=== PATIENT | male | born 1980 | race Caucasian/White ===

== ENCOUNTER 2019-10-01 06:23 | Day surgery (SDC) | payer BC ==
[~2019-10-01 06:23] MED LIST: Lactated Ringers 1,000 ML IV SCH
--- NOTE | 2019-10-01 07:16 | PCM.PREANE ---
Preanesthetic Assessment - Anesthesia/Transfusion/Family Hx Anesthesia History: Prior Anesthesia Without Reaction Family History of Anesthesia Reaction: No Transfusion History: No Prior Transfusion(s) Intubation History: Unknown - Review of Systems General: No Symptoms Pulmonary: No Symptoms Cardiovascular: No Symptoms Gastrointestinal: No Symptoms Neurological: No Symptoms Other: Reports: None - Physical Assessment Height: 6 ft 1 in Weight: 90.718 kg ASA Class: 1 Mental Status: Alert & Oriented x3 Airway Class: Mallampati = 1 Dentition: Reports: Normal Dentition Thyro-Mental Finger Breadths: 3 Mouth Opening Finger Breadths: 3 ROM/Head Extension: Full Lungs: Clear to Auscultation, Normal Respiratory Effort Cardiovascular: Regular Rate, Regular Rhythm - Allergies Allergies/Adverse Reactions: Allergies Allergy/AdvReac Type Severity Reaction Status Date / Time No Known Allergies Allergy Verified 09/25/19 11:16 - Blood Blood Available: No - Anesthesia Plan Pre-Op Medication Ordered: None - Acknowledgements Anesthesia Type Planned: General Anesthesia Pt an Appropriate Candidate for the Planned Anesthesia: Yes Alternatives and Risks of Anesthesia Discussed w Pt/Guardian: Yes Pt/Guardian Understands and Agrees with Anesthesia Plan: Yes PreAnesthesia Questionnaire HEENT History: Reports: Other (See Below) Other HEENT History: wears glasses/contacts Cardiovascular History: Reports: None Respiratory History: Reports: Other (See Below) Other Respiratory History: asthma as a child Gastrointestinal History: Reports: None Genitourinary History: Reports: None Musculoskeletal History: Reports: Fracture, Other (See Below) (rt. biceps tendon tear at present) Other Musculoskeletal History: hx fx ribs Neurological History: Reports: None Psychiatric History: Reports: None Endocrine/Metabolic History: Reports: None Hematologic History: Reports: None Immunologic History: Reports: None Oncologic (Cancer) History: Reports: None Dermatologic History: Reports: None - Past Surgical History Head Surgeries/Procedures: Reports: None HEENT Surgical History: Reports: Adenoidectomy, Tonsillectomy Cardiovascular Surgical History: Reports: None Respiratory Surgical History: Reports: None GI Surgical History: Reports: None Male Surgical History: Reports: None Endocrine Surgical History: Reports: None Neurological Surgical History: Reports: None Musculoskeletal Surgical History: Reports: None Oncologic Surgical History: Reports: None Dermatological Surgical History: Reports: None - SUBSTANCE USE Smoking Status *Q: Never Smoker Recreational Drug Use History: No - HOME MEDS Home Medications: Home Meds Multivitamin [Multivitamins] 1 tab PO DAILY 09/25/19 [History] - CURRENT (IN HOUSE) MEDS Current Meds: Current Medications Cefazolin Sodium/Dextrose 2 gm (/ Premix) 50 mls @ 100 mls/hr IV ONCALL JULIA Lactated Ringer's (Ringers, Lactated) 1,000 mls @ 100 mls/hr IV ASDIRECTED JULIA
[2019-10-01] MEDS ORDERED: Bupivacaine 0.5%/EPINEPHrine 1:200,000 10 ML SDV ONE (07:20)
[2019-10-01] MEDS ORDERED: Propofol 200 MG/20 ML SDV ONE (07:30)
[2019-10-01] MEDS ORDERED: fentaNYL 250 MCG/5 ML SDV ONE (07:30)
[2019-10-01] MEDS ORDERED: Midazolam 1 MG/ML 2 ML SDV ONE ×2 (07:30→08:56)
[2019-10-01] MEDS ORDERED: Succinylcholine/Sod PF 100 MG/5 ML SYRINGE IV ONE (07:31)
[2019-10-01] MEDS ORDERED: Rocuronium 100 MG/10 ML Syringe ONE (07:31)
[2019-10-01] MEDS ORDERED: Lidocaine 2% 5 ML SDV ONE (07:31)
[2019-10-01] MEDS ORDERED: ceFAZolin 2 GM in Premix Bag 1 BAG IV SCH (08:00)
[2019-10-01] MEDS ORDERED: Sugammadex Sodium 200 MG/2 ML VIAL ONE (08:01)
[2019-10-01] MEDS ORDERED: Ondansetron 4 MG/2 ML SDV ONE (08:02)
[2019-10-01] MEDS ORDERED: Dexamethasone 4 MG/ML 5 ML MDV ONE ×2 (08:02→08:35)
[2019-10-01] MEDS ORDERED: ceFAZolin/Dextrose,Iso-Osmotic 2 GM/50 ML Duplex Bag IV ONE (08:03)
--- NOTE | 2019-10-01 09:31 | PCM.OPNOTE ---
- General Post-Op/Procedure Note Date of Surgery/Procedure: 10/01/19 Operative Procedure(s): right ctr, right distal biceps repair Pre Op Diagnosis: right cts, right distal biceps rupture Post-Op Diagnosis: Same Anesthesia Technique: General ET Tube, Regional Block Primary Surgeon: Dandre Weldon Manager Of Information: Yuliana Garcia EBL in mLs: 25 Complications: None Condition: Good
[2019-10-01] MEDS ORDERED: Ketorolac 30 MG/ML SDV ONE (09:59)
[2019-10-01] MEDS ORDERED: Albuterol 0.083% 2.5 MG/3 ML Neb Soln NEB PRN (10:00)
[2019-10-01] MEDS ORDERED: fentaNYL 100 MCG/2 ML SDV IVPUSH PRN (10:00)
[2019-10-01] MEDS ORDERED: Atropine 0.1 MG/ML 10 ML Syringe IVPUSH PRN ×2 (10:00)
[2019-10-01] MEDS ORDERED: Naloxone 0.4 MG/ML Syringe IVPUSH PRN (10:00)
[2019-10-01] MEDS ORDERED: Ketorolac 30 MG/ML SDV IVPUSH PRN (10:00)
[2019-10-01] MEDS ORDERED: 50% Dextrose in Water 50 ML Syringe IVPUSH PRN (10:00)
[2019-10-01] MEDS ORDERED: EPINEPHrine 1:10,000 1 MG/10 ML Syringe IVPUSH PRN (10:00)
--- NOTE | 2019-10-01 11:11 | PCM.POSTAN ---
POST ANESTHESIA ASSESSMENT - MENTAL STATUS Mental Status: Alert, Oriented - VITAL SIGNS Vital Signs: Last Vital Signs Temp 36 C L 10/01/19 09:37 Pulse 73 10/01/19 10:12 Resp 9 L 10/01/19 10:12 BP 118/77 10/01/19 10:12 Pulse Ox 92 L 10/01/19 10:12 - RESPIRATORY Respiratory Status: Respiratory Rate WNL, Airway Patent, O2 Saturation Stable - CARDIOVASCULAR CV Status: Pulse Rate WNL, Blood Pressure Stable - GASTROINTESTINAL GI Status: No Symptoms - PAIN Pain Score: 5 - POST OP HYDRATION Hydration Status: Adequate & Stable - OBSERVATIONS Free Text/Narrative:: No anesthesia problems
--- NOTE | 2019-10-01 11:41 | PCM.SN.2 ---
- Free Text/Narrative Note: Patient requested preop to not take any narcotic pain meds post operatively. Dr Weldon and patient discuss block with Dr Quarles in preop. Consent obtained. After surgery, the patient is transported to the PACU and placed on monitors. Report to Mariama. US used to find landmarks. Site cleansed with chloraprep. Skin anesthetized with Lidocaine. 20 g stimulating needle advanced under US guidance. R deltoid twitch at 1 mA. 20 ml 0.5% Ropivacaine given under US visualization with aspiration every 5 ml.
--- NOTE | 2019-10-01 12:04 | PCM48HPAN ---
Post Anesthesia Note - EVALUATION WITHIN 48HRS OF ANESTHETIC Vital Signs in Normal Range: Yes Patient Participated in Evaluation: Yes Respiratory Function Stable: Yes Airway Patent: Yes Cardiovascular Function Stable: Yes Hydration Status Stable: Yes Pain Control Satisfactory: Yes Nausea and Vomiting Control Satisfactory: Yes Mental Status Recovered: Yes Vital Signs: Last Vital Signs Temp 36 C L 10/01/19 09:37 Pulse 73 10/01/19 10:12 Resp 9 L 10/01/19 10:12 BP 118/77 10/01/19 10:12 Pulse Ox 92 L 10/01/19 10:12
--- NOTE | 2019-10-01 16:23 | OR ---
SURGEON: Dandre Weldon DATE OF PROCEDURE: 10/01/2019 PREOPERATIVE DIAGNOSES: Right carpal tunnel syndrome and right distal biceps tendon rupture. POSTOPERATIVE DIAGNOSES: Right carpal tunnel syndrome and right distal biceps tendon rupture. PROCEDURES: Right carpal tunnel release and right distal biceps tendon repair using Iconix 2.3 mm anchor. PRIMARY SURGEON: Dandre Weldon DO LOCKS TENDER: ZULEYKA Rick ROLE OF LOCKS TENDER: Nurse practitioner, ZULEYKA Rick, played an essential role in assisting in this case, helping to position the patient, retract structures as needed, as well as suturing and cutting sutures as indicated. Her presence improved patient's safety and decreased operative time. ANESTHESIA: General endotracheal intubation. FLUID: Lactated Ringer's solution. ESTIMATED BLOOD LOSS: 25 mL. COMPLICATIONS: None. SPECIMEN: None. DISCHARGE DISPOSITION: Stable to PACU. HISTORY AND INDICATIONS FOR THE PROCEDURE: The patient was seen preoperatively in the clinic. MRI confirmed that he had a distal biceps tendon rupture with most of the tendon intact as well as bilateral mild carpal tunnel syndrome. He had planned on doing the carpal tunnel release a year and a half ago, but never got around to it. He had been through over 90 days of nonoperative therapy for his distal biceps tendon rupture. Risks and goals of the procedure were explained to the patient. Informed consent was obtained. DETAILS OF PROCEDURE: The patient was seen preoperatively by myself and the Anesthesia staff in the preoperative holding area where the operative site was marked. He was brought to the operative suite by the Anesthesia staff where general anesthesia was administered. All extremities were found to be well padded. A well-padded tourniquet was placed around the proximal right arm. The right upper extremity was then prepped and draped in a sterile manner. Time-out was called identifying the correct patient, the correct procedure, the correct site, and that antibiotics had been given within appropriate period of time. The right upper extremity was exsanguinated and tourniquet was raised to 200 mmHg. We started with the carpal tunnel release first. This was a longitudinal incision proximal to the line in line with the 1st metacarpal as well as the radial border of the 4th metacarpal and extended proximally about 2.5 cm. The subcutaneous fat was removed out of the way with a blade. A self-retaining retractor was used. The transverse carpal ligament was easily identified and incised with a 15 blade. Metzenbaums were used to go under and above the deep palmar fascia proximally and distally to the incision and then released under direct visualization with the aid of a Ragnell. After that had been accomplished, we then irrigated, applied some dexamethasone, and then closed with 3-0 nylon in a horizontal mattress interrupted manner. We then let down the tourniquet at 13 minutes and then proceeded with the biceps tendon repair. A longitudinal incision was made distal to the antecubital fossa where the biceps that was intact was still palpated. The patient was quite muscular, so this did take a little bit of time. The lateral antebrachial cutaneous nerve was not identified during the procedure. The exposure was then followed down to the radial tuberosity. I did ligate some small recurrent radial vessels with 2- 0 silk. When I got near the tuberosity of the biceps tendon insertion, a large amount of fluid was visible consistent with a tendon rupture. I then placed an anchor and then whipstitched with a Krackow method up the tendon and then tied it. I then went to pull my sutures through the anchor and the anchor let loose. I had to place two more anchors until one held and then tied the free ends to the free ends of the previous suture with a Krackow stitch. This provided good fixation. We then irrigated with saline and removed any extra suture material. I did note a small bleeder where a needle gone through what I believe was a branch of the brachial artery. I used a 4-0 silk on a small needle and then closed this with a [id number] suture. This took care of any bleeding. I took care of some small bleeders with Bovie electrocautery. We irrigated copiously with saline and then closed the incision subcutaneously with 2-0 Vicryl and then 3-0 nylon. We then placed Betadine-soaked Adaptic over our incisions plus fluff followed by Webril and an Gurdeep wrap. The patient was then placed into a hinged elbow brace, which was open from 70 to 90 degrees flexion. The patient was then allowed to awaken from general anesthesia and taken to the PACU in stable condition for a regional block. [id number] / MODL /[id number]
== END 2019-10-01 12:35 | disposition home or self-care (01) ==
LOC: MW.SDS 06:23
PROVIDERS: ATTEND Orthopaedic Surgery
DX: S46.211A Strain of muscle, fascia and tendon of other parts of biceps, right arm, initial encounter (principal); G56.01 Carpal tunnel syndrome, right upper limb; Z79.899 Other long term (current) drug therapy; X58.XXXA Exposure to other specified factors, initial encounter
CPT/HCPCS: 24341; 64721; C1713; J0131; J0330; J0690; J1100; J1885; J2001; J2250; J2405; J2704; J3010; J3490; J7120; 01810

== ENCOUNTER 2020-01-21 14:11 | Emergency (ER) | payer OTHER, BC ==
--- NOTE | 2020-01-21 14:33 | EDM.PDOC ---
ED HPI GENERAL MEDICAL PROBLEM - General Chief Complaint: Back Pain or Injury Stated Complaint: LOWER BACK PAIN Time Seen by Provider: 01/21/20 14:22 - History of Present Illness INITIAL COMMENTS - FREE TEXT/NARRATIVE: History of present illness: [] HPI-half an hour prior to arrival at work the patient was pulling some cable side of the way to clear the way to put in an engine. At that time he felt a pop in his left back and there was a hard knot since. There is moderate constant pain there is worse with movement. He also feels a ball or not there. He had a little weakness in his left lower extremity at the time of onset. He has little numb feeling in the area and also in the saddle area. The patient has no prior history of back pain or cauda equina syndrome. The patient does have some orthopedic history with carpal tunnel syndrome and also chronic slow developing biceps tear that was surgically repaired. The patient has no medical issues. Can certainly tolerate the pain now as it is fairly mild according to him. It is worse with movement. Currently worse when he touches the area. Review of systems: As per history of present illness and below otherwise all systems reviewed and negative. Past medical history: As per history of present illness and as reviewed below otherwise noncontributory. Surgical history: As per history of present illness and as reviewed below otherwise noncontributory. Social history: No reported history of drug or alcohol abuse. Family history: As per history of present illness and as reviewed below otherwise noncontributory. Physical exam: Constitutional - well developed, well-nourished and in no acute distress HEENT - normocephalic, no evidence of trauma - external nose and mouth normal - no mass in neck and no JVD - mucosae moist EYES - full EOM, PERRL, no icterus - no evidence of inflammation, injection, or drainage Respiratory - no respiratory distress, equal bilateral expansion Musculoskeletal there is some tenderness in the area of a firm induration at the superior most aspect of the sacroiliac area towards the paraspinous muscles at the lowest lumbar area. No gross deformity of long bones or joints - no tenderness, swelling or edema great leg raise is negative for radiculopathy no tenderness in the midline and no other areas of spasm in the lumbar area. Neurologic -neuromotor intact in both lower extremities. He feels light touch i n the saddle area in the lower extremities. Alert and oriented times four - CN II-XII grossly intact - motor sensory and coordination symmetrically normal Psychiatric - appropriate mood and affect with normal thought content Hematologic - No petechiae or purpura - mucosa appropriate color and sclera not pale - normal nail bed color and refill Integument - no rash or evidence of trauma - normal turgor Diagnostics: Exam was sufficient to rule out any acute cauda equina syndrome. [] Therapeutics: Primarily the patient received instruction on what to watch for to be sure he did not have any bleeding numbness in the saddle area or loss of function or loss of bowel or bladder control. [] Impression: Strain or tear in the low lumbar area and sacroiliac area. [] Plan: Steroidal anti-inflammatory medicine, ice, take off the rest of the day. Follow-up with PMD. If this last more than 3 days he needs to follow-up with Worker's Comp. doctors. [] Definitive disposition and diagnosis as appropriate pending reevaluation and review of above. Left Hip Pain Score (Numeric/FACES): 2 - Related Data Allergies Allergy/AdvReac Type Severity Reaction Status Date / Time Penicillins Allergy Rash Verified 01/21/20 14:22 Home Meds: Home Meds . [No Known Home Meds] 01/21/20 [History] Past Medical History HEENT History: Reports: Other (See Below) Other HEENT History: wears glasses/contacts Cardiovascular History: Reports: None Respiratory History: Reports: None Other Respiratory History: asthma as a child Gastrointestinal History: Reports: None Genitourinary History: Reports: None Musculoskeletal History: Reports: Fracture Other Musculoskeletal History: History of Rib Fracture Neurological History: Reports: None Psychiatric History: Reports: None Endocrine/Metabolic History: Reports: None Hematologic History: Reports: None Immunologic History: Reports: None Oncologic (Cancer) History: Reports: None Dermatologic History: Reports: None - Infectious Disease History Infectious Disease History: Reports: Chicken Pox - Past Surgical History Head Surgeries/Procedures: Reports: None HEENT Surgical History: Reports: Adenoidectomy, Tonsillectomy Cardiovascular Surgical History: Reports: None Respiratory Surgical History: Reports: None GI Surgical History: Reports: None Male Surgical History: Reports: None Endocrine Surgical History: Reports: None Neurological Surgical History: Reports: None Musculoskeletal Surgical History: Reports: None Oncologic Surgical History: Reports: None Dermatological Surgical History: Reports: None Social & Family History - Family History Family Medical History: Noncontributory - Tobacco Use Smoking Status *Q: Never Smoker Second Hand Smoke Exposure: No - Caffeine Use Caffeine Use: Reports: Coffee - Recreational Drug Use Recreational Drug Use: No ED ROS GENERAL - Review of Systems Review Of Systems: Comprehensive ROS is negative, except as noted in HPI. ED EXAM, GENERAL - Physical Exam Exam: See Below Free Text/Narrative:: My exam is in the HPI section Course - Vital Signs Last Recorded V/S: Last Vital Signs Temp 97.1 F 01/21/20 14:23 Pulse 60 01/21/20 14:23 Resp 15 01/21/20 14:23 BP 135/87 01/21/20 14:23 Pulse Ox 97 01/21/20 14:23 Departure - Departure Time of Disposition: 14:31 Disposition: Home, Self-Care 01 Condition: Good Clinical Impression: Low back strain - Discharge Information Instructions: Lumbosacral Strain Referrals: PCP,None [Primary Care Provider] - Forms: ED Department Discharge Additional Instructions: [facility] - Primary Care [address] [place] [id number] [place] [address] The following information is given to patients seen in the emergency department who are being discharged to home. This information is to outline your options for follow-up care. We provide all patients seen in our emergency department with a follow-up referral. The need for follow-up, as well as the timing and circumstances, are variable depending upon the specifics of your emergency department visit. If you don't have a primary care physician on staff, we will provide you with a referral. We always advise you to contact your personal physician following an emergency department visit to inform them of the circumstance of the visit and for follow-up with them and/or the need for any referrals to a consulting specialist. The emergency department will also refer you to a specialist when appropriate. This referral assures that you have the opportunity for follow-up care with a specialist. All of these measure are taken in an effort to provide you with optimal care, which includes your follow-up. Under all circumstances we always encourage you to contact your private physician who remains a resource for coordinating your care. When calling for follow-up care, please make the office aware that this follow-up is from your recent emergency room visit. If for any reason you are refused follow-up, please contact the [facility] Emergency Department at and asked to speak to the emergency department charge nurse. Sepsis Event Note (ED) - Evaluation Sepsis Screening Result: No Definite Risk - Focused Exam Vital Signs: Vital Signs Temp Pulse Resp BP Pulse Ox 01/21/20 14:23 97.1 F 60 15 135/87 97
== END 2020-01-21 14:40 | disposition home or self-care (01) ==
LOC: MW.ED 14:11
DX: S39.012A Strain of muscle, fascia and tendon of lower back, initial encounter (principal); J45.909 Unspecified asthma, uncomplicated; Z88.0 Allergy status to penicillin; X50.9XXA Other and unspecified overexertion or strenuous movements or postures, initial encounter; Y99.0 Civilian activity done for income or pay
CPT/HCPCS: 99282; 99283

== ENCOUNTER 2020-08-21 13:10 | Emergency (ER) | payer BC ==
[2020-08-21] MEDS ORDERED: Sodium Chloride 0.9% 2.5 ML Syringe FLUSH PRN (13:15)
[2020-08-21] MEDS ORDERED: Sodium Chloride 0.9% 10 ML Syringe FLUSH PRN (13:15)
--- NOTE | 2020-08-21 13:17 | EDM.PDOC ---
ED HPI GENERAL MEDICAL PROBLEM - General Chief Complaint: Chest Pain Stated Complaint: DIFFICULTY BREATHING Time Seen by Provider: 08/21/20 13:10 Source of Information: Reports: Patient History Limitations: Reports: No Limitations - History of Present Illness INITIAL COMMENTS - FREE TEXT/NARRATIVE: 39-year-old male no past medical history presents for chest pain. Patient state s that while working yesterday he had a sudden onset left anterior chest pain described as a sharp. He states that this lasted about 10 minutes and was worse with deep inspiration. Afterwards he had a dull, achy chest pain that has been persistent throughout the day. It hurts worse to take a deep breath then. He notes another episode of this sharp more intense chest pain lasting about 5 minutes occurring just prior to arrival. He denies any lower extremity swelling, redness, pain. No history of blood clots. No personal history of cardiac problems but does have a strong family history. chest Pain Score (Numeric/FACES): 6 - Related Data Allergies Allergy/AdvReac Type Severity Reaction Status Date / Time Penicillins Allergy Rash Verified 08/21/20 13:25 Home Meds: Home Meds . [No Known Home Meds] 01/21/20 [History] Past Medical History HEENT History: Reports: Other (See Below) Other HEENT History: wears glasses/contacts Cardiovascular History: Reports: None Respiratory History: Reports: None Other Respiratory History: asthma as a child Gastrointestinal History: Reports: None Genitourinary History: Reports: None Musculoskeletal History: Reports: Fracture Other Musculoskeletal History: History of Rib Fracture Neurological History: Reports: None Psychiatric History: Reports: None Endocrine/Metabolic History: Reports: None Hematologic History: Reports: None Immunologic History: Reports: None Oncologic (Cancer) History: Reports: None Dermatologic History: Reports: None - Infectious Disease History Infectious Disease History: Reports: Chicken Pox - Past Surgical History Head Surgeries/Procedures: Reports: None HEENT Surgical History: Reports: Adenoidectomy, Tonsillectomy Cardiovascular Surgical History: Reports: None Respiratory Surgical History: Reports: None GI Surgical History: Reports: None Male Surgical History: Reports: None Endocrine Surgical History: Reports: None Neurological Surgical History: Reports: None Musculoskeletal Surgical History: Reports: None Oncologic Surgical History: Reports: None Dermatological Surgical History: Reports: None Social & Family History - Family History Family Medical History: No Pertinent Family History - Caffeine Use Caffeine Use: Reports: Coffee ED ROS GENERAL - Review of Systems Review Of Systems: Comprehensive ROS is negative, except as noted in HPI. ED EXAM, GENERAL - Physical Exam Exam: See Below Exam Limited By: No Limitations General Appearance: Alert, WD/WN, No Apparent Distress Ears: Hearing Grossly Normal Throat/Mouth: Normal Voice, No Airway Compromise Head: Atraumatic, Normocephalic Neck: Normal Inspection Respiratory/Chest: No Respiratory Distress, Lungs Clear, Normal Breath Sounds, No Accessory Muscle Use Cardiovascular: Normal Peripheral Pulses, Regular Rate, Rhythm, No Edema GI/Abdominal: Soft, Non-Tender Extremities: Normal Inspection Neurological: Alert, Normal Cognition, Normal Gait Psychiatric: Normal Affect, Normal Mood Skin Exam: Warm, Dry, Intact, Normal Color #1 Interpretation EKG Date: 08/21/20 Time: 13:12 Rhythm: NSR Rate (Beats/Min): 64 [place]: Normal P-Wave: Present QRS: Normal ST-T: Normal QT: Normal VT/PQ Interval: 160 Comparison: NA - No Prior EKG EKG Interpretation Comments: non-ischemic Course - Vital Signs Last Recorded V/S: Last Vital Signs Temp 97.2 F 08/21/20 13:19 Pulse 55 L 08/21/20 14:45 Resp 15 08/21/20 14:45 BP 118/71 08/21/20 14:45 Pulse Ox 96 08/21/20 14:45 - Orders/Labs/Meds Orders: Active Orders 24 hr Category Date Time Status Cardiac Monitoring [RC] . DIRECTED Care 08/21/20 13:15 Active EKG Documentation Completion [RC] STAT Care 08/21/20 13:15 Active Pulse Oximetry [RC] ASDIRECTED Care 08/21/20 13:15 Active Sodium Chloride 0.9% [Saline Flush] Med 08/21/20 13:15 Active 10 ml FLUSH ASDIRECTED PRN Sodium Chloride 0.9% [Saline Flush] Med 08/21/20 13:15 Active 2.5 ml FLUSH ASDIRECTED PRN Saline Lock Insert [OM.PC] Stat Oth 08/21/20 13:15 Ordered Medication Orders Sodium Chloride (Sodium Chloride 0.9% 10 Ml Syringe) 10 ml FLUSH ASDIRECTED PRN PRN Reason: Keep Vein Open Sodium Chloride (Sodium Chloride 0.9% 2.5 Ml Syringe) 2.5 ml FLUSH ASDIRECTED PRN PRN Reason: Keep Vein Open Labs: Laboratory Tests 08/21/20 08/21/20 08/21/20 Range/Units 13:16 13:16 13:16 WBC 8.88 (4.0-11.0) K/uL RBC 4.83 (4.50-5.90) M/uL Hgb 15.8 (13.0-17.0) g/dL Hct 46.3 (38.0-50.0) % MCV 95.9 (80.0-98.0) fL MCH 32.7 H (27.0-32.0) pg MCHC 34.1 (31.0-37.0) g/dL RDW Std Deviation 44.7 (28.0-62.0) fl RDW Coeff of Yenni 13 (11.0-15.0) % Plt Count 235 (150-400) K/uL MPV 11.20 (7.40-12.00) fL Neut % (Auto) 62.0 (48.0-80.0) % Lymph % (Auto) 29.3 (16.0-40.0) % [place] % (Auto) 7.3 (0.0-15.0) % Eos % (Auto) 1.2 (0.0-7.0) % Baso % (Auto) 0.2 (0.0-1.5) % Neut # (Auto) 5.5 (1.4-5.7) K/uL Lymph # (Auto) 2.6 H (0.6-2.4) K/uL Fleming # (Auto) 0.7 (0.0-0.8) K/uL Eos # (Auto) 0.1 (0.0-0.7) K/uL Baso # (Auto) 0.0 (0.0-0.1) K/uL Nucleated RBC % 0.0 /100WBC Nucleated RBCs # 0 K/uL INR 1.04 APTT 24.3 (18.6-31.3) SEC D-Dimer, Quantitative (0.0-0.50) mg/L FEU Sodium 134 L (136-148) mmol/L Potassium 3.9 (3.5-5.1) mmol/L Chloride 104 (98-107) mmol/L Carbon Dioxide 26.8 (21.0-32.0) mmol/L BUN 19 H (7.0-18.0) mg/dL Creatinine 1.0 (0.8-1.3) mg/dL Est Cr Clr Drug Dosing 110.97 mL/min Estimated GFR (MDRD) > 60.0 ml/min Glucose 95 (74-106) mg/dL Calcium 8.7 (8.5-10.1) mg/dL Total Bilirubin 0.6 (0.2-1.0) mg/dL AST 27 (15-37) IU/L ALT 47 (14-63) IU/L Alkaline Phosphatase 82 (46-116) U/L Troponin I < 0.050 (0.000-0.056) ng/mL Total Protein 7.5 (6.4-8.2) g/dL Albumin 4.1 (3.4-5.0) g/dL Globulin 3.4 (2.6-4.0) g/dL Albumin/Globulin Ratio 1.2 (0.9-1.6) 08/21/20 08/21/20 Range/Units 13:16 16:02 WBC (4.0-11.0) K/uL RBC (4.50-5.90) M/uL Hgb (13.0-17.0) g/dL Hct (38.0-50.0) % MCV (80.0-98.0) fL MCH (27.0-32.0) pg MCHC (31.0-37.0) g/dL RDW Std Deviation (28.0-62.0) fl RDW Coeff of Yenni (11.0-15.0) % Plt Count (150-400) K/uL MPV (7.40-12.00) fL Neut % (Auto) (48.0-80.0) % Lymph % (Auto) (16.0-40.0) % Fleming % (Auto) (0.0-15.0) % Eos % (Auto) (0.0-7.0) % Baso % (Auto) (0.0-1.5) % Neut # (Auto) (1.4-5.7) K/uL Lymph # (Auto) (0.6-2.4) K/uL Fleming # (Auto) (0.0-0.8) K/uL Eos # (Auto) (0.0-0.7) K/uL Baso # (Auto) (0.0-0.1) K/uL Nucleated RBC % /100WBC Nucleated RBCs # K/uL INR APTT (18.6-31.3) SEC D-Dimer, Quantitative 0.67 H (0.0-0.50) mg/L FEU Sodium (136-148) mmol/L Potassium (3.5-5.1) mmol/L Chloride (98-107) mmol/L Carbon Dioxide (21.0-32.0) mmol/L BUN (7.0-18.0) mg/dL Creatinine (0.8-1.3) mg/dL Est Cr Clr Drug Dosing mL/min Estimated GFR (MDRD) ml/min Glucose (74-106) mg/dL Calcium (8.5-10.1) mg/dL Total Bilirubin (0.2-1.0) mg/dL AST (15-37) IU/L ALT (14-63) IU/L Alkaline Phosphatase (46-116) U/L Troponin I < 0.050 (0.000-0.056) ng/mL Total Protein (6.4-8.2) g/dL Albumin (3.4-5.0) g/dL Globulin (2.6-4.0) g/dL Albumin/Globulin Ratio (0.9-1.6) Meds: Medications Generic Name Dose Route Start Last Admin Trade Name Freq PRN Reason Stop Dose Admin Sodium Chloride 10 ml 08/21/20 13:15 Sodium Chloride 0.9% 10 Ml Syringe FLUSH ASDIRECTED PRN Keep Vein Open Sodium Chloride 2.5 ml 08/21/20 13:15 Sodium Chloride 0.9% 2.5 Ml Syringe FLUSH ASDIRECTED PRN Keep Vein Open Discontinued Medications Generic Name Dose Route Start Last Admin Trade Name Freq PRN Reason Stop Dose Admin Iopamidol 100 ml 08/21/20 14:24 08/21/20 14:25 Iopamidol 755 Mg/Ml 500 Ml Multipack Bottle IVPUSH 08/21/20 14:25 100 ml ONETIME ONE Administration - Re-Assessments/Exams Free Text/Narrative Re-Assessment/Exam: 08/21/20 13:54 Initial troponin is negative. D-dimer is elevated. Will get CTA to rule out pulmonary embolism. 08/21/20 15:09 CTA is normal. Will get repeat troponin at 1600. Patient denies any recurrence of sharp chest pains while in ER 08/21/20 16:50 Patient second troponin is negative. He has no more chest pain since has been in the ER. I will discharge with referral to primary care and cardiology. I explained to patient that he will likely need an outpatient work-up for his chest pain. Departure - Departure Time of Disposition: 16:50 Disposition: Home, Self-Care 01 Condition: Good Clinical Impression: Chest pain Qualifiers: Chest pain type: unspecified Qualified Code(s): R07.9 - Chest pain, unspecified - Discharge Information Instructions: Nonspecific Chest Pain, Adult Referrals: PCP,None [Primary Care Provider] - Forms: ED Department Discharge Additional Instructions: Your emergency department work-up for your chest pain was unremarkable. Your 2 times troponin work-up was negative. Troponin is a cardiac enzyme that we detect in the bloodstream when there is signs of damage to the heart muscle so it is encouraging that your blood tests were negative. Your D-dimer test was positive. D-dimer testing is used as a screening tool for blood clots in the lungs. There are many, many things that cause an elevated D-dimer besides a a blood clot in the lungs. Inflammation, pain, stress can all cause an elevated D-dimer. For this reason we did a CT scan of your chest which did not reveal any pathology. In order to get total cardiac clearance he will need to follow-up with either primary care physician or a computer consultant for further testing. Typically this involves a stress test. Information is provided below for local computer consultant. If your pain suddenly worsens or you are having difficulty breathing you are encouraged to come back to the emergency department for reassessment. [facility] [address] [place] [id number] The following information is given to patients seen in the emergency department who are being discharged to home. This information is to outline your options for follow-up care. We provide all patients seen in our emergency department with a follow-up referral. The need for follow-up, as well as the timing and circumstances, are variable depending upon the specifics of your emergency department visit. If you don't have a primary care physician on staff, we will provide you with a referral. We always advise you to contact your personal physician following an emergency department visit to inform them of the circumstance of the visit and for follow-up with them and/or the need for any referrals to a consulting specialist. The emergency department will also refer you to a specialist when appropriate. This referral assures that you have the opportunity for follow-up care with a specialist. All of these measure are taken in an effort to provide you with optimal care, which includes your follow-up. Under all circumstances we always encourage you to contact your private physician who remains a resource for coordinating your care. When calling for follow-up care, please make the office aware that this follow-up is from your recent emergency room visit. If for any reason you are refused follow-up, please contact the [facility] Emergency Department at and asked to speak to the emergency department charge nurse. Please follow up with your primary care physician. If you do not have a primary care physician, see below: [facility] [address] [place] [id number] My [facility] [address] [place] [address] [facility] [address] [place] [id number] Sepsis Event Note (ED) - Focused Exam Vital Signs: Vital Signs Temp Pulse Resp BP Pulse Ox 08/21/20 14:45 55 L 15 118/71 96 08/21/20 13:45 62 16 122/66 95 08/21/20 13:19 97.2 F 68 17 137/83 97 - My Orders Last 24 Hours: My Active Orders 08/21/20 13:15 Cardiac Monitoring [RC] . DIRECTED EKG Documentation Completion [RC] STAT Pulse Oximetry [RC] ASDIRECTED Sodium Chloride 0.9% [Saline Flush] 10 ml FLUSH ASDIRECTED PRN Sodium Chloride 0.9% [Saline Flush] 2.5 ml FLUSH ASDIRECTED PRN Saline Lock Insert [OM.PC] Stat - Assessment/Plan Last 24 Hours: My Active Orders 08/21/20 13:15 Cardiac Monitoring [RC] . DIRECTED EKG Documentation Completion [RC] STAT Pulse Oximetry [RC] ASDIRECTED Sodium Chloride 0.9% [Saline Flush] 10 ml FLUSH ASDIRECTED PRN Sodium Chloride 0.9% [Saline Flush] 2.5 ml FLUSH ASDIRECTED PRN Saline Lock Insert [OM.PC] Stat
[2020-08-21 13:46] LABS: BLOOD UREA NITROGEN,BUN 19 mg/dL (7.0-18.0); CARBON DIOXIDE,CO2 26.8 mmol/L (21.0-32.0); CHLORIDE,CL 104 mmol/L (98-107); GLUCOSE RANDOM 95 mg/dL (74-106); POTASSIUM,K 3.9 mmol/L (3.5-5.1); SODIUM,NA 134 mmol/L (136-148)
--- NOTE | 2020-08-21 13:54 | CR ---
INDICATION: Chest pain with dyspnea. TECHNIQUE: Portable AP image of the chest. COMPARISON: None. FINDINGS: Lungs and pleural spaces clear. Heart, mediastinum and pulmonary vessels normal. No significant osseous abnormality. IMPRESSION: Negative chest. Dictated by Nader Garcia MD @ Aug 21 2020 1:53PM Signed by Dr. Nader Garcia @ Aug 21 2020 1:53PM
[2020-08-21] MEDS ORDERED: Iopamidol 755 MG/ML 500 ML Multipack Bottle IVPUSH ONE (14:24)
--- NOTE | 2020-08-21 15:01 | CT ---
Indication: Chest pain Technique: Contrast enhanced CT chest 100 mL Isovue Comparison: No comparison Findings: Normal caliber thoracic aorta no pulmonary emboli. Heart size normal. No pericardial effusion. No mediastinal or hilar adenopathy. No pneumothorax. No central endobronchial lesion. Minimal basilar atelectasis. No effusion. No suspicious bony lesions. Impression: No pulmonary emboli. Lungs appear clear. Please note that all CT scans at this facility use dose modulation, iterative reconstruction, and/or weight-based dosing when appropriate to reduce radiation dose to as low as reasonably achievable. Dictated by Crissy Estrella MD @ Aug 21 2020 2:56PM Signed by Dr. Crissy Estrella @ Aug 21 2020 2:59PM
== END 2020-08-21 17:00 | disposition home or self-care (01) ==
LOC: MW.ED 13:10
DX: R07.9 Chest pain, unspecified (principal); J45.909 Unspecified asthma, uncomplicated; Z88.0 Allergy status to penicillin
CPT/HCPCS: 36415; 71045; 71275; 80053; 84484; 85025; 85379; 85610; 85730; 93005; 99285; Q9967; 93010; 99284

== ENCOUNTER 2021-03-24 13:31 | Emergency (ER) | payer BC ==
--- NOTE | 2021-03-24 14:04 | EDM.PDOC ---
ED HPI GENERAL MEDICAL PROBLEM - General Chief Complaint: Respiratory Problem Stated Complaint: FEVER,COUGH Time Seen by Provider: 03/24/21 13:47 - History of Present Illness INITIAL COMMENTS - FREE TEXT/NARRATIVE: Patient presents with several days of fever and cough. Nausea sore throat and hoarse voice and pain behind the nose. Patient is not vaccinated against Covid. No exacerbating relieving factors Bilateral Generalized Pain Score (Numeric/FACES): 8 - Related Data Allergies Allergy/AdvReac Type Severity Reaction Status Date / Time Penicillins Allergy Rash Verified 03/24/21 13:58 Home Meds: Home Meds Ondansetron [Zofran ODT] 4 mg PO Q6H PRN #8 tab.dis 03/24/21 [Rx] Past Medical History HEENT History: Reports: Other (See Below) Other HEENT History: wears glasses/contacts Cardiovascular History: Reports: None Respiratory History: Reports: Asthma Other Respiratory History: asthma as a child Gastrointestinal History: Reports: None Genitourinary History: Reports: None Musculoskeletal History: Reports: Fracture Other Musculoskeletal History: History of Rib Fracture Neurological History: Reports: None Psychiatric History: Reports: None Endocrine/Metabolic History: Reports: None Hematologic History: Reports: None Immunologic History: Reports: None Oncologic (Cancer) History: Reports: None Dermatologic History: Reports: None - Infectious Disease History Infectious Disease History: Reports: Chicken Pox - Past Surgical History Head Surgeries/Procedures: Reports: None HEENT Surgical History: Reports: Adenoidectomy, Tonsillectomy Cardiovascular Surgical History: Reports: None Respiratory Surgical History: Reports: None GI Surgical History: Reports: None Male Surgical History: Reports: None Endocrine Surgical History: Reports: None Neurological Surgical History: Reports: None Musculoskeletal Surgical History: Reports: None Oncologic Surgical History: Reports: None Dermatological Surgical History: Reports: None Social & Family History - Family History Family Medical History: No Pertinent Family History - Caffeine Use Caffeine Use: Reports: Coffee ED ROS GENERAL - Review of Systems Review Of Systems: See Below Constitutional: Reports: Fever HEENT: Reports: Throat Pain Respiratory: Reports: Cough. Denies: Shortness of Breath Cardiovascular: Denies: Chest Pain Endocrine: Reports: Fatigue GI/Abdominal: Reports: Nausea : Reports: Other Musculoskeletal: Reports: Other (body aches) Skin: Denies: Rash Neurological: Reports: Headache Psychiatric: Reports: No Symptoms ED EXAM, GENERAL - Physical Exam Exam: See Below Free Text/Narrative:: CONSTITUTIONAL: well appearing in no acute distress SKIN: Warm, dry, and intact without rash HENT: Normocephalic, atraumatic. [place] to the throat. No peritonsillar exudate. Positive hoarse voice PULMONARY: clear to ausculation bilaterally. No rales, rhonchi, wheezing CARDIOVASCULAR: regular rate, No murmur, rubs, or gallops GASTROINTESTINAL: soft, nondistended, nontender NEUROLOGIC: normal speech, sensorimotor function grossly intact MUSCULOSKELETAL: no gross deformities, atraumatic PSYCHIATRIC: normal mood and affect Course - Vital Signs Text/Narrative:: Differential diagnosis: Pneumonia, Covid, RSV, strep throat, intra-abdominal pathology, other Patient presents outlined above. Covid positive. Patient with some vomiting so given fluids and antiemetics. Checks x-ray is clear and the patient is not hypoxic without significant respiratory distress. Zofran for vomiting with return precautions and PCP follow-up Last Recorded V/S: Last Vital Signs Temp 38.1 C 03/24/21 13:58 Pulse 89 03/24/21 13:58 Resp 17 03/24/21 13:58 BP 130/78 03/24/21 13:58 Pulse Ox 97 03/24/21 13:58 - Orders/Labs/Meds Orders: Active Orders 24 hr Category Date Time Status Lactated Ringers [Ringers, Lactated] 1,000 ml Med 03/24/21 14:28 Active IV .BOLUS Medication Orders Lactated Ringer's (Ringers, Lactated) 1,000 mls @ 999 mls/hr IV .BOLUS ONE Stop: 03/24/21 15:28 Last Admin: 03/24/21 14:36 Dose: 999 mls/hr Documented by: GEOVANY Labs: Laboratory Tests 03/24/21 03/24/21 03/24/21 Range/Units 13:49 14:10 14:35 WBC 6.92 (4.0-11.0) K/uL RBC 4.47 L (4.50-5.90) M/uL Hgb 14.7 (13.0-17.0) g/dL Hct 42.7 (38.0-50.0) % MCV 95.5 (80.0-98.0) fL MCH 32.9 H (27.0-32.0) pg MCHC 34.4 (31.0-37.0) g/dL RDW Std Deviation 44.7 (28.0-62.0) fl RDW Coeff of Yenni 13 (11.0-15.0) % Plt Count 187 (150-400) K/uL MPV 11.60 (7.40-12.00) fL Neut % (Auto) 77.5 (48.0-80.0) % Lymph % (Auto) 7.8 L (16.0-40.0) % [place] % (Auto) 13.9 (0.0-15.0) % Eos % (Auto) 0.4 (0.0-7.0) % Baso % (Auto) 0.4 (0.0-1.5) % Neut # (Auto) 5.4 (1.4-5.7) K/uL Lymph # (Auto) 0.5 L (0.6-2.4) K/uL [place] # (Auto) 1.0 H (0.0-0.8) K/uL Eos # (Auto) 0.0 (0.0-0.7) K/uL Baso # (Auto) 0.0 (0.0-0.1) K/uL Nucleated RBC % 0.0 /100WBC Nucleated RBCs # 0 K/uL Sodium (136-148) mmol/L Potassium (3.5-5.1) mmol/L Chloride (98-107) mmol/L Carbon Dioxide (21.0-32.0) mmol/L BUN (7.0-18.0) mg/dL Creatinine (0.8-1.3) mg/dL Est Cr Clr Drug Dosing mL/min Estimated GFR (MDRD) ml/min Glucose (74-106) mg/dL Calcium (8.5-10.1) mg/dL Total Bilirubin (0.2-1.0) mg/dL AST (15-37) IU/L ALT (14-63) IU/L Alkaline Phosphatase (46-116) U/L Total Protein (6.4-8.2) g/dL Albumin (3.4-5.0) g/dL Globulin (2.6-4.0) g/dL Albumin/Globulin Ratio (0.9-1.6) Lipase (73-393) U/L Influenza Type A RNA NEGATIVE (NEGATIVE) RSV RNA (INAAT) NEGATIVE (NEGATIVE) Influenza Type B RNA NEGATIVE (NEGATIVE) SARS-CoV-2 RNA (ANGELES) POSITIVE H (NEGATIVE) Group A Strep (PCR) NOT DETECTED (NOT DETECT) 03/24/21 Range/Units 14:35 WBC (4.0-11.0) K/uL RBC (4.50-5.90) M/uL Hgb (13.0-17.0) g/dL Hct (38.0-50.0) % MCV (80.0-98.0) fL MCH (27.0-32.0) pg MCHC (31.0-37.0) g/dL RDW Std Deviation (28.0-62.0) fl RDW Coeff of Yenni (11.0-15.0) % Plt Count (150-400) K/uL MPV (7.40-12.00) fL Neut % (Auto) (48.0-80.0) % Lymph % (Auto) (16.0-40.0) % [place] % (Auto) (0.0-15.0) % Eos % (Auto) (0.0-7.0) % Baso % (Auto) (0.0-1.5) % Neut # (Auto) (1.4-5.7) K/uL Lymph # (Auto) (0.6-2.4) K/uL [place] # (Auto) (0.0-0.8) K/uL Eos # (Auto) (0.0-0.7) K/uL Baso # (Auto) (0.0-0.1) K/uL Nucleated RBC % /100WBC Nucleated RBCs # K/uL Sodium 138 (136-148) mmol/L Potassium 4.1 (3.5-5.1) mmol/L Chloride 104 (98-107) mmol/L Carbon Dioxide 23.2 (21.0-32.0) mmol/L BUN 17 (7.0-18.0) mg/dL Creatinine 0.9 (0.8-1.3) mg/dL Est Cr Clr Drug Dosing 122.07 mL/min Estimated GFR (MDRD) > 60.0 ml/min Glucose 114 H (74-106) mg/dL Calcium 8.8 (8.5-10.1) mg/dL Total Bilirubin 0.3 (0.2-1.0) mg/dL AST 21 (15-37) IU/L ALT 35 (14-63) IU/L Alkaline Phosphatase 74 (46-116) U/L Total Protein 7.9 (6.4-8.2) g/dL Albumin 3.9 (3.4-5.0) g/dL Globulin 4.0 (2.6-4.0) g/dL Albumin/Globulin Ratio 1.0 (0.9-1.6) Lipase 78 (73-393) U/L Influenza Type A RNA (NEGATIVE) RSV RNA (INAAT) (NEGATIVE) Influenza Type B RNA (NEGATIVE) SARS-CoV-2 RNA (ANGELES) (NEGATIVE) Group A Strep (PCR) (NOT DETECT) Meds: Medications Generic Name Dose Route Start Last Admin Trade Name Freq PRN Reason Stop Dose Admin Lactated Ringer's 1,000 mls @ 999 mls/hr 03/24/21 14:28 03/24/21 14:36 Ringers, Lactated IV 03/24/21 15:28 999 mls/hr .BOLUS ONE Administration Discontinued Medications Generic Name Dose Route Start Last Admin Trade Name Freq PRN Reason Stop Dose Admin Ondansetron HCl 4 mg 03/24/21 14:28 03/24/21 14:36 Ondansetron 4 Mg/2 Ml Sdv IVPUSH 03/24/21 14:29 4 mg ONETIME ONE Administration Departure - Departure Time of Disposition: 15:24 Disposition: Admitted As Inpatient 66 Condition: Good Clinical Impression: COVID-19 - Discharge Information Instructions: COVID-19: What to Do If You Are Sick- [facility] (07/28/2020) Referrals: Jesús Nina MD [Primary Care Provider] - Forms: ED Department Discharge Additional Instructions: Use Zofran for vomiting. Return for shortness of breath or change or worsening condition. The following information is given to patients seen in the emergency department who are being discharged to home. This information is to outline your options for follow-up care. We provide all patients seen in our emergency department with a follow-up referral. The need for follow-up, as well as the timing and circumstances, are variable depending upon the specifics of your emergency department visit. If you don't have a primary care physician on staff, we will provide you with a referral. We always advise you to contact your personal physician following an emergency department visit to inform them of the circumstance of the visit and for follow-up with them and/or the need for any referrals to a consulting specialist. The emergency department will also refer you to a specialist when appropriate. This referral assures that you have the opportunity for follow-up care with a specialist. All of these measure are taken in an effort to provide you with optimal care, which includes your follow-up. Primary care clinics in the area: [facility] [address] [place] [address] [place] [address] Under all circumstances we always encourage you to contact your private physician who remains a resource for coordinating your care. When calling for follow-up care, please make the office aware that this follow-up is from your recent emergency room visit. If for any reason you are refused follow-up, please contact the [facility] Emergency Department at and asked to speak to the emergency department charge nurse. ` Sepsis Event Note (ED) - Focused Exam Vital Signs: Vital Signs Temp Pulse Resp BP Pulse Ox 03/24/21 13:58 38.1 C 89 17 130/78 97 - My Orders Last 24 Hours: My Active Orders 03/24/21 14:28 Lactated Ringers [Ringers, Lactated] 1,000 ml IV .BOLUS - Assessment/Plan Last 24 Hours: My Active Orders 03/24/21 14:28 Lactated Ringers [Ringers, Lactated] 1,000 ml IV .BOLUS
--- NOTE | 2021-03-24 14:22 | CR ---
Indication: Shortness of breath Comparison: Single-view chest August 21, 2020 Technique: Single AP view chest Findings: There is no focal consolidation, effusion, or pneumothorax. The cardiomediastinal silhouette is within normal limits. The bony thorax is grossly intact. Impression: No acute cardiopulmonary abnormality. Dictated by Cristiano Dc MD @ 03/24/2021 2:21:32 PM (Electronically Signed)
[2021-03-24] MEDS ORDERED: Lactated Ringers 1,000 ML IV ONE (14:28)
[2021-03-24] MEDS ORDERED: Ondansetron 4 MG/2 ML SDV IVPUSH ONE ×2 (14:28→15:27)
[2021-03-24 14:41] LABS: CORONAVIRUS COVID-19 NAA POSITIVE (NEGATIVE); INFLUENZA A NAA NEGATIVE (NEGATIVE); INFLUENZA B NAA NEGATIVE (NEGATIVE); RESPIRATORY SYNCYTIAL VIR NAA NEGATIVE (NEGATIVE)
[2021-03-24 15:11] LABS: BLOOD UREA NITROGEN,BUN 17 mg/dL (7.0-18.0); CARBON DIOXIDE,CO2 23.2 mmol/L (21.0-32.0); CHLORIDE,CL 104 mmol/L (98-107); GLUCOSE RANDOM 114 mg/dL (74-106); LIPASE 78 U/L (73-393); POTASSIUM,K 4.1 mmol/L (3.5-5.1); SODIUM,NA 138 mmol/L (136-148)
== END 2021-03-24 15:53 | disposition home or self-care (01) ==
LOC: MW.ED 13:31
DX: U07.1 COVID-19 (principal); Z88.0 Allergy status to penicillin
CPT/HCPCS: 0241U; 36415; 71045; 80053; 83690; 85025; 87651; 96374; 96376; 99283; J2405; J7120

== ENCOUNTER 2021-03-28 18:15 | Emergency (ER) | payer BC ==
[2021-03-28] MEDS ORDERED: Sodium Chloride 0.9% 10 ML Syringe FLUSH PRN (18:37)
[2021-03-28] MEDS ORDERED: Sodium Chloride 0.9% 2.5 ML Syringe FLUSH PRN (18:37)
--- NOTE | 2021-03-28 18:46 | PCM.EKG ---
#1 Interpretation EKG Date: 03/28/21 Time: 18:39 Rhythm: NSR Rate (Beats/Min): 93 ST-T: Normal
[2021-03-28] MEDS ORDERED: Dexamethasone 10 MG/ML SDV IVPUSH SCH (19:15)
[2021-03-28 19:20] LABS: BLOOD UREA NITROGEN,BUN 14 mg/dL (7.0-18.0); CARBON DIOXIDE,CO2 25.4 mmol/L (21.0-32.0); CHLORIDE,CL 99 mmol/L (98-107); GLUCOSE RANDOM 137 mg/dL (74-106); POTASSIUM,K 4.3 mmol/L (3.5-5.1); SODIUM,NA 133 mmol/L (136-148)
--- NOTE | 2021-03-28 19:41 | EDM.PDOC ---
ED HPI GENERAL MEDICAL PROBLEM - General Chief Complaint: Respiratory Problem Stated Complaint: LOW OXYGEN, HIGH HEART RATE Time Seen by Provider: 03/28/21 18:59 Source of Information: Reports: Patient History Limitations: Reports: No Limitations - History of Present Illness INITIAL COMMENTS - FREE TEXT/NARRATIVE: 40-year-old male tested positive for Covid last Sunday presents with hypoxia. He notes he was desaturating to 86% on room air with mild exertion walking. He admits to pleuritic pain, fever, chills, shortness of breath, sweats, myalgia, generalized malaise, ageusia, anosmia, cough with green sputum, headache. He was not vaccinated against Covid. ROS: A 10-point review of systems, other than pertinent positives and negatives as stated per HPI, is otherwise negative Past medical history: No additional pertinent history Past Surgical history: No additional pertinent history Social history: No additional pertinent history Family history: No additional pertinent history PHYSICAL EXAM General: AOx4, GCS = 15, No distress HEENT: dry mucous membrane Neck: supple, no meningismus, no Kernig or Brudzinski Cardiac: S1S2 RRR Respiratory: CTAB, no crackles or rales, no wheezing Abdomen: Soft, nontender, no rebound or guarding, nondistended, no pulsatile mass. Back: nontender Musculoskeletal: NVI distally, no deformity Neuro: No focal deficits, CN 2 - 12 WNL. lungs Pain Score (Numeric/FACES): 8 - Related Data Allergies Allergy/AdvReac Type Severity Reaction Status Date / Time Penicillins Allergy Rash Verified 03/28/21 18:38 Home Meds: Home Meds Ondansetron [Zofran ODT] 4 mg PO Q6H PRN #20 tab.dis 03/24/21 [Rx] Acetaminophen [Tylenol] 600 mg PO ASDIRECTED 03/28/21 [History] Ibuprofen 400 mg PO ASDIRECTED 03/28/21 [History] dimenhyDRINATE [Dimenhydrinate] 50 mg PO ASDIRECTED 03/28/21 [History] guaiFENesin [Mucus Relief ER] 1,200 mg PO BID 03/28/21 [History] Past Medical History HEENT History: Reports: Other (See Below) Other HEENT History: wears glasses/contacts Cardiovascular History: Reports: None Respiratory History: Reports: Asthma Other Respiratory History: asthma as a child Gastrointestinal History: Reports: None Genitourinary History: Reports: None Musculoskeletal History: Reports: Fracture Other Musculoskeletal History: History of Rib Fracture Neurological History: Reports: None Psychiatric History: Reports: None Endocrine/Metabolic History: Reports: None Hematologic History: Reports: None Immunologic History: Reports: None Oncologic (Cancer) History: Reports: None Dermatologic History: Reports: None - Infectious Disease History Infectious Disease History: Reports: Chicken Pox - Past Surgical History Head Surgeries/Procedures: Reports: None HEENT Surgical History: Reports: Adenoidectomy, Tonsillectomy Cardiovascular Surgical History: Reports: None Respiratory Surgical History: Reports: None GI Surgical History: Reports: None Male Surgical History: Reports: None Endocrine Surgical History: Reports: None Neurological Surgical History: Reports: None Musculoskeletal Surgical History: Reports: None Oncologic Surgical History: Reports: None Dermatological Surgical History: Reports: None Social & Family History - Family History Family Medical History: No Pertinent Family History - Tobacco Use Tobacco Use Status *Q: Never Tobacco User Second Hand Smoke Exposure: No - Caffeine Use Caffeine Use: Reports: None - Recreational Drug Use Recreational Drug Use: No ED ROS GENERAL - Review of Systems Review Of Systems: See Below (see dictation) ED EXAM, GENERAL - Physical Exam Exam: See Below (see dictation) #1 Interpretation EKG Interpretation Comments: Heart rate = 93 bpm, normal sinus rhythm, normal QRS interval, no STEMI. EKG and rhythm strip interpreted by me at 1839 Course - Vital Signs Last Recorded V/S: Last Vital Signs Temp 98.3 F 03/28/21 18:40 Pulse 98 03/28/21 18:40 Resp 17 03/28/21 18:40 BP 108/60 03/28/21 18:40 Pulse Ox 90 L 03/28/21 18:40 - Orders/Labs/Meds Orders: Active Orders 24 hr Category Date Time Status Cardiac Monitoring [RC] . DIRECTED Care 03/28/21 19:12 Active EKG Documentation Completion [RC] STAT Care 03/28/21 19:13 Active Nurse Communication: Isolation [RC] ASDIRECTED Care 03/28/21 19:13 Active Chest 1V Frontal [CR] Stat Exams 03/28/21 18:37 Taken CORONAVIRUS COVID-19 ANGELES [MOLEC] Stat Lab 03/28/21 18:37 Ordered LACTIC ACID [CHEM] Routine Lab 03/28/21 18:50 Received PROCALCITONIN [REF] Stat Lab 03/28/21 18:50 Received Sodium Chloride 0.9% [Saline Flush] Med 03/28/21 18:37 Active 10 ml FLUSH ASDIRECTED PRN Sodium Chloride 0.9% [Saline Flush] Med 03/28/21 18:37 Active 2.5 ml FLUSH ASDIRECTED PRN dexAMETHasone [Decadron] Med 03/28/21 19:15 Active 6 mg IVPUSH DAILY Isolation [COMM] Stat Oth 03/28/21 19:12 Active Saline Lock Insert [OM.PC] Stat Oth 03/28/21 18:37 Ordered Medication Orders Dexamethasone (Dexamethasone 10 Mg/Ml Sdv) 6 mg IVPUSH DAILY JULIA Stop: 04/06/21 09:01 Last Admin: 03/28/21 19:22 Dose: 6 mg Documented by: LEWILAC Sodium Chloride (Sodium Chloride 0.9% 10 Ml Syringe) 10 ml FLUSH ASDIRECTED PRN PRN Reason: Keep Vein Open Last Admin: 03/28/21 18:53 Dose: 10 ml Documented by: KELLEYUALEdvin Sodium Chloride (Sodium Chloride 0.9% 2.5 Ml Syringe) 2.5 ml FLUSH ASDIRECTED PRN PRN Reason: Keep Vein Open Last Admin: 03/28/21 18:53 Dose: 2.5 ml Documented by: KELLEYUALA Labs: Laboratory Tests 03/28/21 03/28/21 03/28/21 Range/Units 18:50 18:50 18:50 WBC 6.33 (4.0-11.0) K/uL RBC 4.44 L (4.50-5.90) M/uL Hgb 14.5 (13.0-17.0) g/dL Hct 41.8 (38.0-50.0) % MCV 94.1 (80.0-98.0) fL MCH 32.7 H (27.0-32.0) pg MCHC 34.7 (31.0-37.0) g/dL RDW Std Deviation 45.2 (28.0-62.0) fl RDW Coeff of Yenni 13 (11.0-15.0) % Plt Count 180 (150-400) K/uL MPV 11.10 (7.40-12.00) fL Neut % (Auto) 80.9 H (48.0-80.0) % Lymph % (Auto) 11.8 L (16.0-40.0) % [place] % (Auto) 7.1 (0.0-15.0) % Eos % (Auto) 0.0 (0.0-7.0) % Baso % (Auto) 0.2 (0.0-1.5) % Neut # (Auto) 5.1 (1.4-5.7) K/uL Lymph # (Auto) 0.8 (0.6-2.4) K/uL [place] # (Auto) 0.5 (0.0-0.8) K/uL Eos # (Auto) 0.0 (0.0-0.7) K/uL Baso # (Auto) 0.0 (0.0-0.1) K/uL Nucleated RBC % 0.0 /100WBC Nucleated RBCs # 0 K/uL INR APTT (18.6-31.3) SEC D-Dimer, Quantitative (0.0-0.50) mg/L FEU Sodium 133 L (136-148) mmol/L Potassium 4.3 (3.5-5.1) mmol/L Chloride 99 (98-107) mmol/L Carbon Dioxide 25.4 (21.0-32.0) mmol/L BUN 14 (7.0-18.0) mg/dL Creatinine 1.0 (0.8-1.3) mg/dL Est Cr Clr Drug Dosing TNP Estimated GFR (MDRD) > 60.0 ml/min Glucose 137 H (74-106) mg/dL Calcium 8.2 L (8.5-10.1) mg/dL Ferritin (26-388) ng/mL Total Bilirubin 0.3 (0.2-1.0) mg/dL AST 45 H (15-37) IU/L ALT 51 (14-63) IU/L Alkaline Phosphatase 54 (46-116) U/L Lactate Dehydrogenase 372 H (81-234) U/L C-Reactive Protein 10.90 H (0.00-0.90) mg/dL Total Protein 7.4 (6.4-8.2) g/dL Albumin 3.2 L (3.4-5.0) g/dL Globulin 4.2 H (2.6-4.0) g/dL Albumin/Globulin Ratio 0.8 L (0.9-1.6) 03/28/21 03/28/21 03/28/21 Range/Units 18:50 18:50 18:50 WBC (4.0-11.0) K/uL RBC (4.50-5.90) M/uL Hgb (13.0-17.0) g/dL Hct (38.0-50.0) % MCV (80.0-98.0) fL MCH (27.0-32.0) pg MCHC (31.0-37.0) g/dL RDW Std Deviation (28.0-62.0) fl RDW Coeff of Yenni (11.0-15.0) % Plt Count (150-400) K/uL MPV (7.40-12.00) fL Neut % (Auto) (48.0-80.0) % Lymph % (Auto) (16.0-40.0) % [place] % (Auto) (0.0-15.0) % Eos % (Auto) (0.0-7.0) % Baso % (Auto) (0.0-1.5) % Neut # (Auto) (1.4-5.7) K/uL Lymph # (Auto) (0.6-2.4) K/uL [place] # (Auto) (0.0-0.8) K/uL Eos # (Auto) (0.0-0.7) K/uL Baso # (Auto) (0.0-0.1) K/uL Nucleated RBC % /100WBC Nucleated RBCs # K/uL INR 1.01 APTT 29.2 (18.6-31.3) SEC D-Dimer, Quantitative 1.04 H (0.0-0.50) mg/L FEU Sodium (136-148) mmol/L Potassium (3.5-5.1) mmol/L Chloride (98-107) mmol/L Carbon Dioxide (21.0-32.0) mmol/L BUN (7.0-18.0) mg/dL Creatinine (0.8-1.3) mg/dL Est Cr Clr Drug Dosing Estimated GFR (MDRD) ml/min Glucose (74-106) mg/dL Calcium (8.5-10.1) mg/dL Ferritin 705 H (26-388) ng/mL Total Bilirubin (0.2-1.0) mg/dL AST (15-37) IU/L ALT (14-63) IU/L Alkaline Phosphatase (46-116) U/L Lactate Dehydrogenase (81-234) U/L C-Reactive Protein (0.00-0.90) mg/dL Total Protein (6.4-8.2) g/dL Albumin (3.4-5.0) g/dL Globulin (2.6-4.0) g/dL Albumin/Globulin Ratio (0.9-1.6) Meds: Medications Generic Name Dose Route Start Last Admin Trade Name Freq PRN Reason Stop Dose Admin Dexamethasone 6 mg 03/28/21 19:15 03/28/21 19:22 Dexamethasone 10 Mg/Ml Sdv IVPUSH 04/06/21 09:01 6 mg DAILY JULIA Administration Sodium Chloride 10 ml 03/28/21 18:37 03/28/21 18:53 Sodium Chloride 0.9% 10 Ml Syringe FLUSH 10 ml ASDIRECTED PRN Administration Keep Vein Open Sodium Chloride 2.5 ml 03/28/21 18:37 03/28/21 18:53 Sodium Chloride 0.9% 2.5 Ml Syringe FLUSH 2.5 ml ASDIRECTED PRN Administration Keep Vein Open - Re-Assessments/Exams Free Text/Narrative Re-Assessment/Exam: 03/28/21 19:55 Patient satting appropriately on 2 L nasal cannula, speaking full sentences. Case discussed with Dr. Nesbitt, who agrees to admit patient. The hospitalist's documentation supersedes all other documentation on this patient with regard to any conflicts or discrepancies from this point forward. Any emergency conditions have been treated to the ability of the ED prior to admission. Departure - Departure Time of Disposition: 19:55 Disposition: Admitted As Inpatient 65 Condition: Good Clinical Impression: Hypoxemia, COVID-19 - Discharge Information *PRESCRIPTION DRUG MONITORING PROGRAM REVIEWED*: Not Applicable *COPY OF PRESCRIPTION DRUG MONITORING REPORT IN PATIENT TAN: Not Applicable Instructions: COVID-19 Vaccine Information, What You Should Know About COVID-19 to Protect Yourself and Others - [facility] Referrals: Jesús Nina MD [Primary Care Provider] - Forms: ED Department Discharge Sepsis Event Note (ED) - Evaluation Sepsis Screening Result: No Definite Risk - Focused Exam Vital Signs: Vital Signs Temp Pulse Resp BP Pulse Ox 03/28/21 18:40 98.3 F 98 17 108/60 90 L - My Orders Last 24 Hours: My Active Orders 03/28/21 18:50 LACTIC ACID [CHEM] Routine PROCALCITONIN [REF] Stat 03/28/21 19:12 Cardiac Monitoring [RC] . DIRECTED Isolation [COMM] Stat 03/28/21 19:13 EKG Documentation Completion [RC] STAT Nurse Communication: Isolation [RC] ASDIRECTED 03/28/21 19:15 dexAMETHasone [Decadron] 6 mg IVPUSH DAILY - Assessment/Plan Last 24 Hours: My Active Orders 03/28/21 18:50 LACTIC ACID [CHEM] Routine PROCALCITONIN [REF] Stat 03/28/21 19:12 Cardiac Monitoring [RC] . DIRECTED Isolation [COMM] Stat 03/28/21 19:13 EKG Documentation Completion [RC] STAT Nurse Communication: Isolation [RC] ASDIRECTED 03/28/21 19:15 dexAMETHasone [Decadron] 6 mg IVPUSH DAILY
--- NOTE | 2021-03-28 19:55 | CR ---
INDICATION: Tachypnea, shortness of breath TECHNIQUE: Portable upright AP view of the chest COMPARISON: AP chest radiograph 03/24/2021 FINDINGS: Patchy airspace opacities in the left lung base and in the peripheral right lung, suggesting infiltrates. No sizable pleural effusion or pneumothorax. The cardiomediastinal silhouette is normal. The visualized osseous structures are unremarkable. IMPRESSION: Patchy bilateral pulmonary opacities suggesting infiltrates. COVID-19 pneumonia is a consideration. Correlate clinically. Dictated by Betsy Chilel MD @ 03/28/2021 7:53:41 PM (Electronically Signed)
[2021-03-28] MEDS ORDERED: Iopamidol 755 MG/ML 500 ML Multipack Bottle IVPUSH STA ×2 (20:36)
--- NOTE | 2021-03-28 21:19 | CT ---
INDICATION: COVID. Hypoxemia, and elevated d dimer. Evaluate for pulmonary emboli. CT CHEST WITH CONTRAST TECHNIQUE: Multidetector CT imaging was performed through the chest following intravenous contrast administration using 75 mL Isovue 370. Coronal and sagittal reconstructions were generated. COMPARISON: 08/21/[address] FINDINGS: Lungs and airways: Multiple areas of patchy ground-glass opacity and consolidation scattered throughout both lungs, consistent with COVID-19 pneumonia of moderate severity. Central airways are patent. Pleura and pleural spaces: No pleural effusions or pneumothorax. Heart and mediastinum: Normal heart size. No significant pericardial effusion. A few upper normal sized mediastinal and bilateral hilar lymph nodes, likely reactive. Vascular structures: Evaluation is mildly limited by motion and by mildly suboptimal opacification of the pulmonary arterial tree. No definite filling defects in the pulmonary arterial tree to suggest pulmonary emboli. Normal caliber thoracic aorta. Chest wall and axillae: No mass or axillary lymphadenopathy. Osseous structures: Normal for age. No acute fractures identified. Upper abdomen: Unremarkable. IMPRESSION: 1. Patchy ground-glass opacities and areas of lung consolidation bilaterally consistent with COVID-19 pneumonia of moderate severity. 2. No pulmonary emboli identified. MATT MCCAULEY MD [facility] Dictated by Bean Mccauley MD @ 03/28/2021 9:17:20 PM Please note that all CT scans at this facility use dose modulation, iterative reconstruction, and/or weight-based dosing when appropriate to reduce radiation dose to as low as reasonably achievable. Dictated by: Bean Mccauley MD @ 03/28/2021 21:18:30 (Electronically Signed)
== END 2021-03-28 22:35 | disposition home or self-care (01) ==
LOC: MW.ED 18:15
DX: U07.1 COVID-19 (principal); R09.02 Hypoxemia; Z88.0 Allergy status to penicillin
CPT/HCPCS: 36415; 71045; 71275; 80053; 82728; 83605; 83615; 85025; 85379; 85610; 85730; 86140; 93005; 99285; J1100; Q9967

== ENCOUNTER 2021-03-29 21:06 | Emergency (ER) | payer BC ==
[2021-03-29] MEDS ORDERED: Sodium Chloride 0.9% 10 ML Syringe FLUSH PRN (21:24)
[2021-03-29] MEDS ORDERED: Sodium Chloride 0.9% 2.5 ML Syringe FLUSH PRN (21:24)
--- NOTE | 2021-03-29 21:43 | EDM.PDOC ---
ED HPI GENERAL MEDICAL PROBLEM - General Chief Complaint: Respiratory Problem Stated Complaint: LOW OXYGEN, HIGH HEART RATE Time Seen by Provider: 03/29/21 21:25 Source of Information: Reports: Patient History Limitations: Reports: No Limitations - History of Present Illness INITIAL COMMENTS - FREE TEXT/NARRATIVE: 40 yo M returns with hypoxia with COVID-19 diagnosed on 03/24. Yesterday he was seen in the ER and did not require supplemental oxygen with ambulation, however upon discharge, CT angio chest yesterday did not demonstrate pulmonary embolism. Today he noticed that he desatted to 87% on room air at home and became tachycardic with ambulation and felt dizzy. He did receive his Regeneron infusion today. ROS: A 10-point review of systems, other than pertinent positives and negatives as stated per HPI, is otherwise negative Past medical history: No additional pertinent history Past Surgical history: No additional pertinent history Social history: No additional pertinent history Family history: No additional pertinent history PHYSICAL EXAM General: AOx4, GCS = 15, No distress HEENT: dry mucous membrane Neck: supple, no meningismus, no Kernig or Brudzinski Cardiac: S1S2 tachycardia Respiratory: CTAB, no crackles or rales, no wheezing Abdomen: Soft, nontender, no rebound or guarding, nondistended, no pulsatile mass. Back: nontender Musculoskeletal: NVI distally, no deformity Neuro: No focal deficits, CN 2 - 12 WNL. Lower Back Pain Score (Numeric/FACES): 6 - Related Data Allergies Allergy/AdvReac Type Severity Reaction Status Date / Time Penicillins Allergy Rash Verified 03/29/21 21:11 Home Meds: Home Meds Ondansetron [Zofran ODT] 4 mg PO Q6H PRN #20 tab.dis 03/24/21 [Rx] Acetaminophen [Tylenol] 600 mg PO ASDIRECTED 03/28/21 [History] Benzonatate 100 mg PO BID #10 capsule 03/28/21 [Rx] Ibuprofen 400 mg PO ASDIRECTED 03/28/21 [History] dimenhyDRINATE [Dimenhydrinate] 50 mg PO ASDIRECTED 03/28/21 [History] guaiFENesin [Mucus Relief ER] 1,200 mg PO BID 03/28/21 [History] dexAMETHasone [Decadron] 6 mg PO DAILY #5 tablet 03/29/21 [Rx] Past Medical History HEENT History: Reports: Other (See Below) Other HEENT History: wears glasses/contacts Cardiovascular History: Reports: None Respiratory History: Reports: Asthma Other Respiratory History: asthma as a child Gastrointestinal History: Reports: None Genitourinary History: Reports: None Musculoskeletal History: Reports: Fracture Other Musculoskeletal History: History of Rib Fracture Neurological History: Reports: None Psychiatric History: Reports: None Endocrine/Metabolic History: Reports: None Hematologic History: Reports: None Immunologic History: Reports: None Oncologic (Cancer) History: Reports: None Dermatologic History: Reports: None - Infectious Disease History Infectious Disease History: Reports: Chicken Pox - Past Surgical History Head Surgeries/Procedures: Reports: None HEENT Surgical History: Reports: Adenoidectomy, Tonsillectomy Cardiovascular Surgical History: Reports: None Respiratory Surgical History: Reports: None GI Surgical History: Reports: None Male Surgical History: Reports: None Endocrine Surgical History: Reports: None Neurological Surgical History: Reports: None Musculoskeletal Surgical History: Reports: None Oncologic Surgical History: Reports: None Dermatological Surgical History: Reports: None Social & Family History - Family History Family Medical History: No Pertinent Family History - Tobacco Use Tobacco Use Status *Q: Never Tobacco User - Caffeine Use Caffeine Use: Reports: None - Recreational Drug Use Recreational Drug Use: No ED ROS GENERAL - Review of Systems Review Of Systems: See Below (see dictation) ED EXAM, GENERAL - Physical Exam Exam: See Below (see dictation) #1 Interpretation EKG Interpretation Comments: Heart rate = 98 bpm, normal sinus rhythm, normal QRS interval, no STEMI. EKG and rhythm strip interpreted by me at 0742 Course - Vital Signs Last Recorded V/S: Last Vital Signs Temp 102.5 F H 03/29/21 21:12 Pulse 107 H 03/29/21 22:18 Resp 20 03/29/21 22:18 BP 126/64 03/29/21 22:18 Pulse Ox 93 L 03/29/21 22:18 - Orders/Labs/Meds Orders: Active Orders 24 hr Category Date Time Status COVID-19/FLU A+B [MOLEC] Stat Lab 03/29/21 21:24 Ordered Sodium Chloride 0.9% [Saline Flush] Med 03/29/21 21:24 Active 10 ml FLUSH ASDIRECTED PRN Sodium Chloride 0.9% [Saline Flush] Med 03/29/21 21:24 Active 2.5 ml FLUSH ASDIRECTED PRN Saline Lock Insert [OM.PC] Stat Oth 03/29/21 21:24 Ordered Medication Orders Sodium Chloride (Sodium Chloride 0.9% 10 Ml Syringe) 10 ml FLUSH ASDIRECTED PRN PRN Reason: Keep Vein Open Last Admin: 03/29/21 21:39 Dose: 10 ml Documented by: АНДРЕЙ Sodium Chloride (Sodium Chloride 0.9% 2.5 Ml Syringe) 2.5 ml FLUSH ASDIRECTED PRN PRN Reason: Keep Vein Open Last Admin: 03/29/21 21:39 Dose: 2.5 ml Documented by: АНДРЕЙ Labs: Laboratory Tests 03/29/21 03/29/21 Range/Units 21:15 21:15 WBC 8.44 (4.0-11.0) K/uL RBC 4.60 (4.50-5.90) M/uL Hgb 15.1 (13.0-17.0) g/dL Hct 43.1 (38.0-50.0) % MCV 93.7 (80.0-98.0) fL MCH 32.8 H (27.0-32.0) pg MCHC 35.0 (31.0-37.0) g/dL RDW Std Deviation 44.5 (28.0-62.0) fl RDW Coeff of Yenni 13 (11.0-15.0) % Plt Count 211 (150-400) K/uL MPV 10.50 (7.40-12.00) fL Neut % (Auto) 81.6 H (48.0-80.0) % Lymph % (Auto) 11.1 L (16.0-40.0) % [place] % (Auto) 7.3 (0.0-15.0) % Eos % (Auto) 0.0 (0.0-7.0) % Baso % (Auto) 0.0 (0.0-1.5) % Neut # (Auto) 6.9 H (1.4-5.7) K/uL Lymph # (Auto) 0.9 (0.6-2.4) K/uL [place] # (Auto) 0.6 (0.0-0.8) K/uL Eos # (Auto) 0.0 (0.0-0.7) K/uL Baso # (Auto) 0.0 (0.0-0.1) K/uL Nucleated RBC % 0.0 /100WBC Nucleated RBCs # 0 K/uL Sodium 136 (136-148) mmol/L Potassium 4.0 (3.5-5.1) mmol/L Chloride 98 (98-107) mmol/L Carbon Dioxide 26.2 (21.0-32.0) mmol/L BUN 16 (7.0-18.0) mg/dL Creatinine 1.0 (0.8-1.3) mg/dL Est Cr Clr Drug Dosing 109.86 mL/min Estimated GFR (MDRD) > 60.0 ml/min Glucose 119 H (74-106) mg/dL Calcium 8.7 (8.5-10.1) mg/dL Total Bilirubin 0.3 (0.2-1.0) mg/dL AST 68 H (15-37) IU/L ALT 87 H (14-63) IU/L Alkaline Phosphatase 60 (46-116) U/L Troponin I < 0.050 (0.000-0.056) ng/mL Total Protein 7.8 (6.4-8.2) g/dL Albumin 3.4 (3.4-5.0) g/dL Globulin 4.4 H (2.6-4.0) g/dL Albumin/Globulin Ratio 0.8 L (0.9-1.6) Meds: Medications Generic Name Dose Route Start Last Admin Trade Name Freq PRN Reason Stop Dose Admin Sodium Chloride 10 ml 03/29/21 21:24 03/29/21 21:39 Sodium Chloride 0.9% 10 Ml Syringe FLUSH 10 ml ASDIRECTED PRN Administration Keep Vein Open Sodium Chloride 2.5 ml 03/29/21 21:24 03/29/21 21:39 Sodium Chloride 0.9% 2.5 Ml Syringe FLUSH 2.5 ml ASDIRECTED PRN Administration Keep Vein Open - Re-Assessments/Exams Free Text/Narrative Re-Assessment/Exam: 03/29/21 23:19 After being fitted for home oxygen in the ER, the patient is currently stable for discharge. Patient will go across the street to [employer] to obtain the home concentrator and oxygen. I performed a repeat exam and did not appreciate new abnormal findings. I advised the patient to return to the ER for reevaluation if symptoms worsened, including fever, worsening pain, or any other worrisome symptoms. I instructed the patient to follow up with their PCP within 2-3 days. MEDICAL DECISION MAKING: I reviewed the patients past medical records, lab and radiographic findings. I discussed the case with the patient. My differential diagnosis included: Covid, pneumonia. Blood work unremarkable, no signs of atypical chest pain. This patient was evaluated for the symptoms described in the history of present illness. They were evaluated in the context of the global COVID-19 pandemic, which necessitated consideration that the patient might be at risk for infection with the SARS-CoV-2 virus that causes COVID-19. Institutional protocols and algorithms that pertain to the evaluation of patients at risk for COVID-19 are in a state of rapid change based on information released by regulatory bodies including the CDC and federal and state organizations. These policies and algorithms were followed during the patient's care. I wore full PPE, N95, face shield, gown and gloves throughout my evaluation and care of this patient. I recommended home isolation. given home isolation instructions. The patient is well appearing, not in respiratory distress, speaking full sentences, he was fitted for home oxygen use. I instructed patient to return immediately for worsening symptoms, sob, chest pain, lightheadedness or other concerns. Patient voiced understanding and questions answered. Departure - Departure Time of Disposition: 23:23 Disposition: Home, Self-Care 01 Condition: Good Clinical Impression: COVID-19, Supplemental oxygen dependent - Discharge Information *PRESCRIPTION DRUG MONITORING PROGRAM REVIEWED*: Not Applicable *COPY OF PRESCRIPTION DRUG MONITORING REPORT IN PATIENT TAN: Not Applicable Prescriptions: dexAMETHasone [Decadron] 6 mg PO DAILY #5 tablet Instructions: COVID-19 Vaccine Information, 10 Things You Can Do to Manage Your COVID-19 Symptoms at Home - [facility] (11/26/2020), How to Wear and Take Off Your Mask - [facility] (08/12/2020) Referrals: Jesús Nina MD [Primary Care Provider] - 2 Days Forms: ED Department Discharge Additional Instructions: The need for follow-up, as well as the timing and circumstances, are variable depending upon the specifics of your emergency department visit. If you don't have a primary care physician on staff, we will provide you with a referral. We always advise you to contact your personal physician following an emergency department visit to inform them of the circumstance of the visit and for follow-up with them and/or the need for any referrals to a consulting specialist. The emergency department will also refer you to a specialist when appropriate. This referral assures that you have the opportunity for follow-up care with a specialist. All of these measure are taken in an effort to provide you with optimal care, which includes your follow-up. Under all circumstances we always encourage you to contact your private physician who remains a resource for coordinating your care. When calling for follow-up care, please make the office aware that this follow-up is from your recent emergency room visit. If for any reason you are refused follow-up, please contact the [facility] Emergency Department at and asked to speak to the emergency department charge nurse. If you do not have a primary care doctor, please follow up with the clinics below within 3-[address] [facility] [address] [place] [id number] [address] Sepsis Event Note (ED) - Focused Exam Vital Signs: Vital Signs Temp Pulse Resp BP Pulse Ox 03/29/21 22:18 107 H 20 126/64 93 L 03/29/21 21:18 92 L 03/29/21 21:12 102.5 F H 105 H 16 122/76 85 L
[2021-03-29 21:47] LABS: BLOOD UREA NITROGEN,BUN 16 mg/dL (7.0-18.0); CARBON DIOXIDE,CO2 26.2 mmol/L (21.0-32.0); CHLORIDE,CL 98 mmol/L (98-107); GLUCOSE RANDOM 119 mg/dL (74-106); SODIUM,NA 136 mmol/L (136-148)
== END 2021-03-29 23:29 | disposition home or self-care (01) ==
LOC: MW.ED 21:06
DX: U07.1 COVID-19 (principal); Z88.0 Allergy status to penicillin; Z99.81 Dependence on supplemental oxygen
CPT/HCPCS: 36415; 80053; 84484; 85025; 93005; 99285-25

== ENCOUNTER 2021-04-04 08:53 | Inpatient (IN) | payer BC ==
[2021-04-04 10:39] LABS: BLOOD UREA NITROGEN,BUN 12 mg/dL (7.0-18.0); CHLORIDE,CL 103 mmol/L (98-107); GLUCOSE RANDOM 139 mg/dL (74-106); POTASSIUM,K 4.2 mmol/L (3.5-5.1); SODIUM,NA 138 mmol/L (136-148)
[2021-04-04] MEDS ORDERED: Enoxaparin 40 MG/0.4 ML Syringe SUBCUT SCH (12:00)
[2021-04-04] MEDS ORDERED: REMDESIVIR 200 MG in Sodium Chloride 0.9% 250 ML IV ONE ×2 (12:00→14:00)
[2021-04-04] MEDS ORDERED: Iopamidol 755 MG/ML 500 ML Multipack Bottle IVPUSH STA (15:54)
--- NOTE | 2021-04-04 16:17 | CT ---
INDICATION: Hypoxia, COVID TECHNIQUE: CT chest pulmonary angiogram acquired with IV contrast. 100 cc Isovue 370 COMPARISON: None FINDINGS: Cardiovascular structures: Inadequate opacification of pulmonary arteries to evaluate for pulmonary embolus.. Heart size is normal. No sign of aneurysm or dissection in the thoracic aorta. Mediastinum and vinnie: No mass or adenopathy. Pneumomediastinum is present. Small related pneumothorax cannot be excluded. Lungs: Diffuse bilateral areas of ground-glass appearance and areas of consolidation consistent with pneumonia worrisome for COVID related pneumonia. Pleura and pericardium: No effusions. Chest wall and axilla: No mass or adenopathy. Bones: No significant findings. Upper abdomen: Unremarkable. IMPRESSION: Nondiagnostic study for pulmonary embolus due to suboptimal opacification of pulmonary arteries. Diffuse bilateral areas of ground-glass appearance and consolidation consistent with pneumonia more specifically COVID pneumonia. Small amount of pneumomediastinum. This is of unknown etiology. Small related pneumothorax cannot be excluded Please note that all CT scans at this facility use dose modulation, iterative reconstruction, and/or weight-based dosing when appropriate to reduce radiation dose to as low as reasonably achievable. Dictated by Rick Meek MD @ 04/04/2021 4:15:21 PM (Electronically Signed)
--- NOTE | 2021-04-04 18:16 | PCM.HP.2 ---
H&P History of Present Illness - General Date of Service: 04/04/21 Admit Problem/Dx: Admission Diagnosis/Problem Admission Diagnosis/Problem Hypoxia - History of Present Illness Initial Comments - Free Text/Narative: 40 yo male who presents with ten days of cough, fevers and shortness of breath. He has been seen in the ED three times and has been diagnosed with COVID and treated with dexamethasone and home oxygen. Patient was directly admitted from Dr. Farmer's clinic when he presented with worsening shortness of breath fatigue. He was found to be satting 88% of 4 liters. A direct admission was arranged. Repeat CT angio reported bilateral infiltrates but no PE. - Related Data Allergies/Adverse Reactions: Allergies Allergy/AdvReac Type Severity Reaction Status Date / Time Penicillins Allergy Rash Verified 03/29/21 21:11 Home Medications: Home Meds Ondansetron [Zofran ODT] 4 mg PO Q6H PRN #20 tab.dis 03/24/21 [Rx] Acetaminophen [Tylenol] 600 mg PO ASDIRECTED 03/28/21 [History] Ibuprofen 400 mg PO ASDIRECTED 03/28/21 [History] guaiFENesin [Mucus Relief ER] 1,200 mg PO BID 03/28/21 [History] dexAMETHasone [Decadron] 6 mg PO DAILY #5 tablet 03/29/21 [Rx] Past Medical History HEENT History: Reports: Other (See Below) Other HEENT History: wears glasses/contacts Cardiovascular History: Reports: None Respiratory History: Reports: Asthma Other Respiratory History: asthma as a child Gastrointestinal History: Reports: None Genitourinary History: Reports: None Musculoskeletal History: Reports: Fracture Other Musculoskeletal History: History of Rib Fracture Neurological History: Reports: None Psychiatric History: Reports: None Endocrine/Metabolic History: Reports: None Hematologic History: Reports: None Immunologic History: Reports: None Oncologic (Cancer) History: Reports: None Dermatologic History: Reports: None - Infectious Disease History Infectious Disease History: Reports: Chicken Pox - Past Surgical History Head Surgeries/Procedures: Reports: None HEENT Surgical History: Reports: Adenoidectomy, Tonsillectomy Cardiovascular Surgical History: Reports: None Respiratory Surgical History: Reports: None GI Surgical History: Reports: None Male Surgical History: Reports: None Endocrine Surgical History: Reports: None Neurological Surgical History: Reports: None Musculoskeletal Surgical History: Reports: None Oncologic Surgical History: Reports: None Dermatological Surgical History: Reports: None Social & Family History - Family History Family Medical History: No Pertinent Family History - Tobacco Use Tobacco Use Status *Q: Never Tobacco User Second Hand Smoke Exposure: No - Caffeine Use Caffeine Use: Reports: Coffee - Recreational Drug Use Recreational Drug Use: No H&P Review of Systems - Review of Systems: Review Of Systems: Comprehensive ROS is negative, except as noted in HPI. Exam - Exam Exam: See Below - Vital Signs Vital Signs: Last Vital Signs Temp 35.6 C L 04/04/21 11:32 Pulse 91 04/04/21 15:32 Resp 20 04/04/21 15:32 BP 127/71 04/04/21 15:32 Pulse Ox 87 L 04/04/21 15:32 Weight: 88.36 kg - Exam General: Alert, Oriented HEENT: Mucosa Moist & [place] Neck: Supple Lungs: Clear to Auscultation, Normal Respiratory Effort Cardiovascular: Regular Rate, Regular Rhythm Extremities: Non-Tender, No Pedal Edema Skin: Warm, Dry, Intact - Patient Data Lab Results Last 24 hrs: Laboratory Results - last 24 hr 04/04/21 04/04/21 04/04/21 Range/Units 09:40 09:40 09:40 WBC 17.59 H (4.0-11.0) K/uL RBC 4.57 (4.50-5.90) M/uL Hgb 15.0 (13.0-17.0) g/dL Hct 42.7 (38.0-50.0) % MCV 93.4 (80.0-98.0) fL MCH 32.8 H (27.0-32.0) pg MCHC 35.1 (31.0-37.0) g/dL RDW Std Deviation 43.8 (28.0-62.0) fl RDW Coeff of Yenni 13 (11.0-15.0) % Plt Count 488 H (150-400) K/uL MPV 9.80 (7.40-12.00) fL Add Manual Diff YES Neutrophils % (Manual) 86 H (48.0-80.0) % Band Neutrophils % 2 % Lymphocytes % (Manual) 7 L (16.0-40.0) % Monocytes % (Manual) 5 (0.0-15.0) % Nucleated RBC % 0.0 /100WBC Absolute Seg Neuts 15.1 H (1.4-5.7) Band Neutrophils # 0.4 Lymphocytes # (Manual) 1.2 (0.6-2.4) Monocytes # (Manual) 0.9 H (0.0-0.8) Nucleated RBCs # 0 K/uL INR 1.04 Sodium 138 (136-148) mmol/L Potassium 4.2 (3.5-5.1) mmol/L Chloride 103 (98-107) mmol/L Carbon Dioxide 24.0 (21.0-32.0) mmol/L BUN 12 (7.0-18.0) mg/dL Creatinine 0.9 (0.8-1.3) mg/dL Est Cr Clr Drug Dosing TNP Estimated GFR (MDRD) > 60.0 ml/min Glucose 139 H (74-106) mg/dL Calcium 9.1 (8.5-10.1) mg/dL Total Bilirubin 1.0 (0.2-1.0) mg/dL AST 47 H (15-37) IU/L ALT 242 H (14-63) IU/L Alkaline Phosphatase 70 (46-116) U/L C-Reactive Protein 8.80 H (0.00-0.90) mg/dL Total Protein 7.6 (6.4-8.2) g/dL Albumin 2.8 L (3.4-5.0) g/dL Globulin 4.8 H (2.6-4.0) g/dL Albumin/Globulin Ratio 0.6 L (0.9-1.6) Result Diagrams: 04/04/21 09:40 04/04/21 09:40 Sepsis Event Note - Evaluation Sepsis Screening Result: Sepsis Risk - Focused Exam Vital Signs: Vital Signs Temp Pulse Resp BP Pulse Ox Pulse Ox 04/04/21 15:32 91 20 127/71 87 L 04/04/21 11:32 35.6 C L 88 18 117/70 93 L 88 L - Problem List (1) COVID-19 SNOMED Code(s): 867960927 ICD Code: U07.1 - COVID-19 Status: Acute Current Visit: No (2) Hypoxemia SNOMED Code(s): 894947208 ICD Code: R09.02 - HYPOXEMIA Status: Acute Current Visit: No Problem List Initiated/Reviewed/Updated: Yes Orders Last 24hrs: Active Orders 24 hr Category Date Time Status Patient Status [ADT] Routine ADT 04/04/21 11:32 Active Antiembolic Devices [RC] PER UNIT ROUTINE Care 04/04/21 11:33 Active Cardiac Monitoring [RC] CONTINUOUS Care 04/04/21 11:33 Active Oxygen Therapy [RC] PRN Care 04/04/21 11:32 Active RT Post Treatment Assessment [RC] Click to Edit Care 04/04/21 14:33 Active RT Pre-Treatment Assessment [RC] Click to Edit Care 04/04/21 14:33 Active VTE/DVT Education [RC] PER UNIT ROUTINE Care 04/04/21 11:32 Active Vital Signs [RC] Q4H Care 04/04/21 11:32 Active Regular Diet [DIET] Diet 04/04/21 Breakfast Active CBC W/O DIFF,HEMOGRAM [HEME] AM Lab 04/05/21 05:11 Ordered CBC W/O DIFF,HEMOGRAM [HEME] AM Lab 04/06/21 05:11 Ordered COMPREHENSIVE METABOLIC PN,CMP [CHEM] AM Lab 04/05/21 05:11 Ordered COMPREHENSIVE METABOLIC PN,CMP [CHEM] AM Lab 04/06/21 05:11 Ordered PROCALCITONIN [REF] Routine Lab 04/04/21 09:40 Received Acetaminophen [TylenoL] Med 04/04/21 14:25 Active 650 mg PO Q4H PRN Albuterol/Ipratropium [Combivent Respimat] Med 04/04/21 14:33 Active 0 gm INH Q4H PRN Azithromycin [Zithromax] Med 04/04/21 18:15 Ordered 500 mg IV Q24H Dextromethorphan/guaiFENesin [Robitussin DM] Med 04/04/21 15:27 Active 10 ml PO Q6H PRN Enoxaparin [Lovenox] Med 04/04/21 12:00 Active 40 mg SUBCUT Q24H Remdesivir 100 mg Med 04/05/21 14:00 Active Sodium Chloride 0.9% [Normal Saline AdvBag] 100 ml IV Q24H Sodium Chloride 0.65% [[place] Nasal [place]] Med 04/04/21 14:23 Active 1 ml ROSS Q6H PRN cefTRIAXone [Rocephin in Dextrose,Iso-Osm 1 GM/50 ML] 1 Med 04/04/21 18:15 Ordered gm Premix Bag 1 bag IV Q24H Sequential Compression Device [OM.PC] Per Unit Routine Oth 04/04/21 11:32 Ordered Resuscitation Status Routine Resus Stat 04/04/21 11:32 Ordered Medication Orders Acetaminophen (Acetaminophen 325 Mg Tab) 650 mg PO Q4H PRN PRN Reason: Pain/Fever Albuterol/Ipratropium (Albuterol/Ipratropium 4 Gm Inhalation [place]) 0 gm INH Q4H PRN PRN Reason: Dyspnea Azithromycin (Azithromycin 500 Mg Vial) 500 mg IV Q24H JULIA Enoxaparin Sodium (Enoxaparin 40 Mg/0.4 Ml Syringe) 40 mg SUBCUT Q24H JULIA Last Admin: 04/04/21 12:00 Dose: Not Given Documented by: BHASKAR Guaifenesin/Dextromethorphan (Guaifenesin/Dextromethorphan 100-10 Mg/5 Ml Soln 10 Ml Cup) 10 ml PO Q6H PRN PRN Reason: Cough Remdesivir 100 mg/ Sodium (Chloride) 100 mls @ 100 mls/hr IV Q24H JULIA Stop: 04/08/21 14:59 Ceftriaxone Sodium/Dextrose 1 (gm/ Premix) 50 mls @ 100 mls/hr IV Q24H JULIA Sodium Chloride (Sodium Chloride 0.65% Nasal [place] 45 Ml Bottle) 1 ml ROSS Q6H PRN PRN Reason: Congestion Assessment/Plan Comment:: 40 yo male admitted for COVID-19 pneumonia with hypoxia Hypoxia: on 10 liters COVID: treating with dexamethasone, remdesivir, for possible bacterial pneumonia will start Rocephin and azithromycin Lovenox for DVT prophylaxis
[2021-04-04] MEDS: Acetaminophen 325 MG Tab PO PRN ×2 (18:38→22:52)
[2021-04-04] MEDS: Albuterol/Ipratropium 4 GM Inhalation Spray INH PRN (18:39)
[2021-04-04] MEDS: cefTRIAXone 1 GM in Premix Bag 1 BAG IV SCH (18:40)
[2021-04-04] MEDS ORDERED: Azithromycin 500 MG Vial IV SCH (20:00)
[2021-04-04] MEDS: Azithromycin 500 MG in Sodium Chloride 0.9% 250 ML IV SCH (20:03)
[2021-04-04] MEDS: Sodium Chloride 0.65% Nasal Spray 45 ML Bottle NAS PRN (20:19)
[2021-04-04] MEDS: Ondansetron 4 MG/2 ML SDV IVPUSH PRN (22:53)
[2021-04-05] MEDS: Ibuprofen 200 MG Tab PO PRN ×2 (03:06→20:20)
[2021-04-05] MEDS: Ondansetron 4 MG/2 ML SDV IVPUSH PRN (03:18)
[2021-04-05 07:41] LABS: BLOOD UREA NITROGEN,BUN 11 mg/dL (7.0-18.0); CARBON DIOXIDE,CO2 21.3 mmol/L (21.0-32.0); CHLORIDE,CL 102 mmol/L (98-107); GLUCOSE RANDOM 100 mg/dL (74-106); POTASSIUM,K 3.8 mmol/L (3.5-5.1); SODIUM,NA 135 mmol/L (136-148)
[2021-04-05] MEDS: Albuterol/Ipratropium 4 GM Inhalation Spray INH PRN ×4 (08:56→22:24)
[2021-04-05] MEDS: Dexamethasone 4 MG Tab PO SCH (08:57)
[2021-04-05] MEDS: Acetaminophen 325 MG Tab PO PRN ×4 (08:57→22:24)
[2021-04-05] MEDS ORDERED: Promethazine 25 MG/ML SDV IM PRN (10:01)
[2021-04-05] MEDS: guaiFENesin/Dextromethorphan 100-10 MG/5 ML Soln 10 ML Cup PO PRN ×2 (10:14→18:15)
[2021-04-05] MEDS: Enoxaparin 40 MG/0.4 ML Syringe SUBCUT SCH (10:14)
--- NOTE | 2021-04-05 10:19 | PCM.PN ---
- General Info Date of Service: 04/05/21 - Review of Systems Systems Review Comment:: reports shortness of breath - Patient Data Vitals - Most Recent: Last Vital Signs Temp 36.6 C 04/05/21 03:32 Pulse 94 04/05/21 03:32 Resp 23 H 04/05/21 03:32 BP 108/51 L 04/05/21 03:32 Pulse Ox 89 L 04/05/21 03:32 Weight - Most Recent: 88.36 kg I&O - Last 24 Hours: Intake & Output 04/04/21 04/05/21 04/05/21 22:59 06:59 14:59 Intake Total 2000 600 Output Total 1300 850 Balance 700 -250 Lab Results Last 24 Hours: Laboratory Results - last 24 hr 04/04/21 04/04/21 04/04/21 Range/Units 09:40 09:40 09:40 WBC 17.59 H (4.0-11.0) K/uL RBC 4.57 (4.50-5.90) M/uL Hgb 15.0 (13.0-17.0) g/dL Hct 42.7 (38.0-50.0) % MCV 93.4 (80.0-98.0) fL MCH 32.8 H (27.0-32.0) pg MCHC 35.1 (31.0-37.0) g/dL RDW Std Deviation 43.8 (28.0-62.0) fl RDW Coeff of Yenni 13 (11.0-15.0) % Plt Count 488 H (150-400) K/uL MPV 9.80 (7.40-12.00) fL Add Manual Diff YES Neutrophils % (Manual) 86 H (48.0-80.0) % Band Neutrophils % 2 % Lymphocytes % (Manual) 7 L (16.0-40.0) % Monocytes % (Manual) 5 (0.0-15.0) % Nucleated RBC % 0.0 /100WBC Absolute Seg Neuts 15.1 H (1.4-5.7) Band Neutrophils # 0.4 Lymphocytes # (Manual) 1.2 (0.6-2.4) Monocytes # (Manual) 0.9 H (0.0-0.8) Nucleated RBCs # 0 K/uL INR 1.04 Sodium 138 (136-148) mmol/L Potassium 4.2 (3.5-5.1) mmol/L Chloride 103 (98-107) mmol/L Carbon Dioxide 24.0 (21.0-32.0) mmol/L BUN 12 (7.0-18.0) mg/dL Creatinine 0.9 (0.8-1.3) mg/dL Est Cr Clr Drug Dosing TNP Estimated GFR (MDRD) > 60.0 ml/min Glucose 139 H (74-106) mg/dL Calcium 9.1 (8.5-10.1) mg/dL Total Bilirubin 1.0 (0.2-1.0) mg/dL AST 47 H (15-37) IU/L ALT 242 H (14-63) IU/L Alkaline Phosphatase 70 (46-116) U/L C-Reactive Protein 8.80 H (0.00-0.90) mg/dL Total Protein 7.6 (6.4-8.2) g/dL Albumin 2.8 L (3.4-5.0) g/dL Globulin 4.8 H (2.6-4.0) g/dL Albumin/Globulin Ratio 0.6 L (0.9-1.6) Procalcitonin ng/mL 04/04/21 04/05/21 04/05/21 Range/Units 09:40 05:52 05:52 WBC 17.07 H (4.0-11.0) K/uL RBC 4.12 L (4.50-5.90) M/uL Hgb 13.3 (13.0-17.0) g/dL Hct 38.2 (38.0-50.0) % MCV 92.7 (80.0-98.0) fL MCH 32.3 H (27.0-32.0) pg MCHC 34.8 (31.0-37.0) g/dL RDW Std Deviation 43.7 (28.0-62.0) fl RDW Coeff of Yenni 13 (11.0-15.0) % Plt Count 517 H (150-400) K/uL MPV 10.20 (7.40-12.00) fL Add Manual Diff Neutrophils % (Manual) (48.0-80.0) % Band Neutrophils % % Lymphocytes % (Manual) (16.0-40.0) % Monocytes % (Manual) (0.0-15.0) % Nucleated RBC % 0.0 /100WBC Absolute Seg Neuts (1.4-5.7) Band Neutrophils # Lymphocytes # (Manual) (0.6-2.4) Monocytes # (Manual) (0.0-0.8) Nucleated RBCs # 0 K/uL INR Sodium 135 L (136-148) mmol/L Potassium 3.8 (3.5-5.1) mmol/L Chloride 102 (98-107) mmol/L Carbon Dioxide 21.3 (21.0-32.0) mmol/L BUN 11 (7.0-18.0) mg/dL Creatinine 0.8 (0.8-1.3) mg/dL Est Cr Clr Drug Dosing 137.33 Estimated GFR (MDRD) > 60.0 ml/min Glucose 100 (74-106) mg/dL Calcium 8.4 L (8.5-10.1) mg/dL Total Bilirubin 0.8 (0.2-1.0) mg/dL AST 48 H (15-37) IU/L ALT 176 H (14-63) IU/L Alkaline Phosphatase 65 (46-116) U/L C-Reactive Protein (0.00-0.90) mg/dL Total Protein 6.3 L (6.4-8.2) g/dL Albumin 2.1 L (3.4-5.0) g/dL Globulin 4.2 H (2.6-4.0) g/dL Albumin/Globulin Ratio 0.5 L (0.9-1.6) Procalcitonin 0.15 H ng/mL Med Orders - Current: Current Medications Acetaminophen (Acetaminophen 325 Mg Tab) 650 mg PO Q4H PRN PRN Reason: Pain/Fever Last Admin: 04/05/21 08:57 Dose: 650 mg Documented by: Albuterol/Ipratropium (Albuterol/Ipratropium 4 Gm Inhalation [place]) 0 gm INH Q4H PRN PRN Reason: Dyspnea Last Admin: 04/05/21 08:56 Dose: 1 puff Documented by: Baricitinib (Baricitinib 2 Mg Tab) 4 mg PO DAILY JULIA Last Admin: 04/05/21 08:56 Dose: 4 mg Documented by: Dexamethasone (Dexamethasone 4 Mg Tab) 6 mg PO DAILY [facility] Last Admin: 04/05/21 08:57 Dose: 6 mg Documented by: Enoxaparin Sodium (Enoxaparin 40 Mg/0.4 Ml Syringe) 40 mg SUBCUT Q24H [facility] Guaifenesin/Dextromethorphan (Guaifenesin/Dextromethorphan 100-10 Mg/5 Ml Soln 10 Ml Cup) 10 ml PO Q6H PRN PRN Reason: Cough Remdesivir 100 mg/ Sodium (Chloride) 100 mls @ 100 mls/hr IV Q24H [facility] Stop: 04/08/21 14:59 Ceftriaxone Sodium/Dextrose 1 (gm/ Premix) 50 mls @ 100 mls/hr IV Q24H [facility] Last Admin: 04/04/21 18:40 Dose: 100 mls/hr Documented by: Azithromycin 500 mg/ Sodium (Chloride) 250 mls @ 250 mls/hr IV Q24H [facility] Last Admin: 04/04/21 20:03 Dose: 250 mls/hr Documented by: Ibuprofen (Ibuprofen 200 Mg Tab) 200 mg PO Q6H PRN PRN Reason: Pain Last Admin: 04/05/21 03:06 Dose: 200 mg Documented by: Ondansetron HCl (Ondansetron 4 Mg/2 Ml Sdv) 4 mg IVPUSH Q4H PRN PRN Reason: Nausea Last Admin: 04/05/21 03:18 Dose: 4 mg Documented by: Sodium Chloride (Sodium Chloride 0.65% Nasal [place] 45 Ml Bottle) 1 ml ROSS Q6H PRN PRN Reason: Congestion Last Admin: 04/04/21 20:19 Dose: 1 spray Documented by: Discontinued Medications Enoxaparin Sodium (Enoxaparin 40 Mg/0.4 Ml Syringe) 40 mg SUBCUT Q24H [facility] Last Admin: 04/04/21 12:00 Dose: Not Given Documented by: Remdesivir 200 mg/ Sodium (Chloride) 250 mls @ 250 mls/hr IV ONETIME ONE Stop: 04/04/21 14:59 Last Admin: 04/04/21 14:37 Dose: 250 mls/hr Documented by: Iopamidol (Iopamidol 755 Mg/Ml 500 Ml Multipack Bottle) 100 ml IVPUSH ONETIME STA Stop: 04/04/21 15:55 Last Admin: 04/04/21 15:55 Dose: 100 ml Documented by: - Exam General: Alert, Oriented Neck: Supple Lungs: Clear to Auscultation, Normal Respiratory Effort Cardiovascular: Regular Rate, Regular Rhythm GI/Abdominal Exam: Normal Bowel Sounds, Soft, Non-Tender Extremities: Non-Tender, No Pedal Edema Skin: Warm, Dry, Intact Neurological: No New Focal Deficit - Patient Data Lab Results Last 24 hrs: Laboratory Results - last 24 hr 04/04/21 04/04/21 04/04/21 Range/Units 09:40 09:40 09:40 WBC 17.59 H (4.0-11.0) K/uL RBC 4.57 (4.50-5.90) M/uL Hgb 15.0 (13.0-17.0) g/dL Hct 42.7 (38.0-50.0) % MCV 93.4 (80.0-98.0) fL MCH 32.8 H (27.0-32.0) pg MCHC 35.1 (31.0-37.0) g/dL RDW Std Deviation 43.8 (28.0-62.0) fl RDW Coeff of Yenni 13 (11.0-15.0) % Plt Count 488 H (150-400) K/uL MPV 9.80 (7.40-12.00) fL Add Manual Diff YES Neutrophils % (Manual) 86 H (48.0-80.0) % Band Neutrophils % 2 % Lymphocytes % (Manual) 7 L (16.0-40.0) % Monocytes % (Manual) 5 (0.0-15.0) % Nucleated RBC % 0.0 /100WBC Absolute Seg Neuts 15.1 H (1.4-5.7) Band Neutrophils # 0.4 Lymphocytes # (Manual) 1.2 (0.6-2.4) Monocytes # (Manual) 0.9 H (0.0-0.8) Nucleated RBCs # 0 K/uL INR 1.04 Sodium 138 (136-148) mmol/L Potassium 4.2 (3.5-5.1) mmol/L Chloride 103 (98-107) mmol/L Carbon Dioxide 24.0 (21.0-32.0) mmol/L BUN 12 (7.0-18.0) mg/dL Creatinine 0.9 (0.8-1.3) mg/dL Est Cr Clr Drug Dosing TNP Estimated GFR (MDRD) > 60.0 ml/min Glucose 139 H (74-106) mg/dL Calcium 9.1 (8.5-10.1) mg/dL Total Bilirubin 1.0 (0.2-1.0) mg/dL AST 47 H (15-37) IU/L ALT 242 H (14-63) IU/L Alkaline Phosphatase 70 (46-116) U/L C-Reactive Protein 8.80 H (0.00-0.90) mg/dL Total Protein 7.6 (6.4-8.2) g/dL Albumin 2.8 L (3.4-5.0) g/dL Globulin 4.8 H (2.6-4.0) g/dL Albumin/Globulin Ratio 0.6 L (0.9-1.6) Procalcitonin ng/mL 04/04/21 04/05/21 04/05/21 Range/Units 09:40 05:52 05:52 WBC 17.07 H (4.0-11.0) K/uL RBC 4.12 L (4.50-5.90) M/uL Hgb 13.3 (13.0-17.0) g/dL Hct 38.2 (38.0-50.0) % MCV 92.7 (80.0-98.0) fL MCH 32.3 H (27.0-32.0) pg MCHC 34.8 (31.0-37.0) g/dL RDW Std Deviation 43.7 (28.0-62.0) fl RDW Coeff of Yenni 13 (11.0-15.0) % Plt Count 517 H (150-400) K/uL MPV 10.20 (7.40-12.00) fL Add Manual Diff Neutrophils % (Manual) (48.0-80.0) % Band Neutrophils % % Lymphocytes % (Manual) (16.0-40.0) % Monocytes % (Manual) (0.0-15.0) % Nucleated RBC % 0.0 /100WBC Absolute Seg Neuts (1.4-5.7) Band Neutrophils # Lymphocytes # (Manual) (0.6-2.4) Monocytes # (Manual) (0.0-0.8) Nucleated RBCs # 0 K/uL INR Sodium 135 L (136-148) mmol/L Potassium 3.8 (3.5-5.1) mmol/L Chloride 102 (98-107) mmol/L Carbon Dioxide 21.3 (21.0-32.0) mmol/L BUN 11 (7.0-18.0) mg/dL Creatinine 0.8 (0.8-1.3) mg/dL Est Cr Clr Drug Dosing 137.33 Estimated GFR (MDRD) > 60.0 ml/min Glucose 100 (74-106) mg/dL Calcium 8.4 L (8.5-10.1) mg/dL Total Bilirubin 0.8 (0.2-1.0) mg/dL AST 48 H (15-37) IU/L ALT 176 H (14-63) IU/L Alkaline Phosphatase 65 (46-116) U/L C-Reactive Protein (0.00-0.90) mg/dL Total Protein 6.3 L (6.4-8.2) g/dL Albumin 2.1 L (3.4-5.0) g/dL Globulin 4.2 H (2.6-4.0) g/dL Albumin/Globulin Ratio 0.5 L (0.9-1.6) Procalcitonin 0.15 H ng/mL Result Diagrams: 04/05/21 05:52 04/05/21 05:52 Sepsis Event Note - Evaluation Sepsis Screening Result: Sepsis Risk - Focused Exam Vital Signs: Vital Signs Temp Pulse Resp BP Pulse Ox 04/05/21 03:32 36.6 C 94 23 H 108/51 L 89 L 04/05/21 02:00 20 91 L 04/04/21 23:43 36.5 C 86 18 106/54 L 93 L - Problem List & Annotations (1) COVID-19 SNOMED Code(s): 470967572 Code(s): U07.1 - COVID-19 Status: Acute Current Visit: No (2) Hypoxemia SNOMED Code(s): 852773358 Code(s): R09.02 - HYPOXEMIA Status: Acute Current Visit: No - Problem List Review Problem List Initiated/Reviewed/Updated: Yes - My Orders Last 24 Hours: My Active Orders 04/04/21 09:40 Telemetry Monitoring [Cardiac Monitoring] [RC] Q8H 04/04/21 11:32 Patient Status [ADT] Routine Oxygen Therapy [RC] PRN VTE/DVT Education [RC] PER UNIT ROUTINE Vital Signs [RC] Q4H Sequential Compression Device [OM.PC] Per Unit Routine Resuscitation Status Routine 04/04/21 11:33 Antiembolic Devices [RC] PER UNIT ROUTINE Cardiac Monitoring [RC] CONTINUOUS 04/04/21 14:23 Sodium Chloride 0.65% [[place] Nasal [place]] 1 ml ROSS Q6H PRN 04/04/21 14:25 Acetaminophen [TylenoL] 650 mg PO Q4H PRN 04/04/21 14:33 RT Post Treatment Assessment [RC] Click to Edit RT Pre-Treatment Assessment [RC] Click to Edit Albuterol/Ipratropium [Combivent Respimat] 0 gm INH Q4H PRN 04/04/21 15:27 Dextromethorphan/guaiFENesin [Robitussin DM] 10 ml PO Q6H PRN 04/04/21 19:00 cefTRIAXone [Rocephin in Dextrose,Iso-Osm 1 GM/50 ML] 1 gm Premix Bag 1 bag IV Q24H 04/04/21 20:00 Azithromycin [Zithromax] 500 mg Sodium Chloride 0.9% [Normal Saline AdvBag] 250 ml IV Q24H 04/04/21 22:40 Ondansetron [Zofran] 4 mg IVPUSH Q4H PRN 04/05/21 02:19 Ibuprofen [Motrin] 200 mg PO Q6H PRN 04/05/21 02:20 RT Oxygen High Humidity High Flow [RESPCARE] Routine 04/05/21 09:00 Baricitinib [Olumiant] 4 mg PO DAILY dexAMETHasone 6 mg PO DAILY 04/05/21 09:15 Enoxaparin [Lovenox] 40 mg SUBCUT Q24H 04/05/21 14:00 Remdesivir 100 mg Sodium Chloride 0.9% [Normal Saline AdvBag] 100 ml IV Q24H 04/06/21 05:11 CBC W/O DIFF,HEMOGRAM [HEME] AM COMPREHENSIVE METABOLIC PN,CMP [CHEM] AM - Plan Plan:: 40 yo male admitted for COVID-19 pneumonia with hypoxia Hypoxia: on heated high flow NC 55 L at 65% COVID: treating with dexamethasone, remdesivir, for possible bacterial pneumonia has been on Rocephin and azithromycin but procalcitonin is low. Patient has been instructed on the FDA EAU of Baricitinib has consented to the use of Baricitinib Lovenox for DVT prophylaxis
[2021-04-05] MEDS: REMDESIVIR 100 MG in Sodium Chloride 0.9% 100 ML IV SCH (13:39)
[2021-04-05] MEDS: Ondansetron 4 MG Tab.DIS PO PRN ×3 (13:40→22:24)
[2021-04-05] MEDS: cefTRIAXone 1 GM in Premix Bag 1 BAG IV SCH (18:08)
--- NOTE | 2021-04-05 18:20 | PN ---
THC Physician - Brief Progress [id number]/23/2021 18:15[facility] [place], [place] - [place] ([facility]) - NICHOLE ICUBOBPING BAILON, COVID+Date of Service 04/05/2021 18:15HP I/Events of Note The patient is a 40-year-old male with progressive COVID-19 pneumonia. He was admit patricia yesterday, his FiO2 HHFNC went up from 65 to 100%. He was moved to ICU for close monitoringPatie nt was seen over camera, available data reviewedHe had diffuse groundglass opacities on CT, no pulmon johanna embolusIs on remdesivir Decadron 6 mg, prophylactic Lovenox, as well as empiric coverage for comm unity-acquired pneumonia with ceftriaxone and azithromycinWe will continue to monitorPlease call eICU questionPlease excuse any mistakes in syntax and contextual errors that this report may contain, as it is created by ob/gyn doctor softwareInterventions Intermediate-Other: COVID-19 pneumonia and ARDS
[2021-04-05] MEDS: Azithromycin 500 MG in Sodium Chloride 0.9% 250 ML IV SCH (20:19)
[2021-04-06] MEDS: guaiFENesin/Dextromethorphan 100-10 MG/5 ML Soln 10 ML Cup PO PRN ×2 (00:19→06:41)
[2021-04-06] MEDS: Ondansetron 4 MG Tab.DIS PO PRN ×3 (02:46→20:38)
[2021-04-06] MEDS: Albuterol/Ipratropium 4 GM Inhalation Spray INH PRN ×3 (02:46→20:49)
[2021-04-06] MEDS: Ibuprofen 200 MG Tab PO PRN ×3 (02:46→16:50)
[2021-04-06] MEDS: Acetaminophen 325 MG Tab PO PRN ×5 (03:05→20:38)
--- NOTE | 2021-04-06 03:23 | PN ---
THC Physician - Brief Progress [id number]/24/2021 03:19[facility] [place], [place] - [facility] ([facility]) - PING [place] COVID+Date of Service 04/06/2021 03:19HP I/Events of Note Discussed with RN: Pt desatting on HHF.Plan: trial of CPAP, encourage self proning a s tolerated.Interventions Minor-Communication with other healthcare providers and/or familyElectronic ally Signed by: TREVA OCHOA () on 04/06/2021 03:22
[2021-04-06 04:37] LABS: BLOOD UREA NITROGEN,BUN 12 mg/dL (7.0-18.0); CARBON DIOXIDE,CO2 23.9 mmol/L (21.0-32.0); CHLORIDE,CL 104 mmol/L (98-107); GLUCOSE RANDOM 122 mg/dL (74-106); POTASSIUM,K 4.4 mmol/L (3.5-5.1); SODIUM,NA 138 mmol/L (136-148)
[2021-04-06] MEDS: Dexamethasone 4 MG Tab PO SCH (08:15)
[2021-04-06] MEDS: Enoxaparin 40 MG/0.4 ML Syringe SUBCUT SCH (08:15)
[2021-04-06] MEDS ORDERED: Albuterol 0.083% 2.5 MG/3 ML Neb Soln NEB PRN (09:30)
[2021-04-06] MEDS ORDERED: Albuterol/Ipratropium 3.0-0.5 MG/3 ML Neb Soln NEB SCH (10:00)
--- NOTE | 2021-04-06 10:32 | CR ---
INDICATION: Increased SOB. TECHNIQUE: Upright portable AP image of the chest. COMPARISON: 03/28/2021. FINDINGS: Marked progression of bilateral infiltrates since the previous examination with larger areas of consolidation. No obvious pleural effusion. Heart size normal. Pulmonary veins obscured by the infiltrates. No significant bony abnormality. IMPRESSION: Marked progression of bilateral pneumonias with large areas of consolidation. Dictated by Nader Garcia MD @ 04/06/2021 10:30:21 AM (Electronically Signed)
[2021-04-06] MEDS: Albuterol/Ipratropium 3.0-0.5 MG/3 ML Neb Soln NEB SCH ×2 (11:14→17:54)
[2021-04-06] MEDS: REMDESIVIR 100 MG in Sodium Chloride 0.9% 100 ML IV SCH (14:17)
--- NOTE | 2021-04-06 16:09 | PN ---
THC Physician - Brief Progress [id number]/24/2021 16:02[facility] [place], [place] - [place] - [facility] ICUBOBPING BAILON, COVID+Date of Service 04/06/2021 16:02HP I/Events of Note The patient is a 40-year-old male with progressive COVID-19 pneumonia. He was admitt edyesterday, his FiO2 HHFNC went up from 65 to 100%. He was moved to ICU for closemonitoring n 04/05H e had diffuse groundglass opacities on CT, no pulmonary embolusIs on remdesivir Decadron 6 mg, prophy lactic Lovenox, as well as empiric coverage forcommunity-acquired pneumonia with ceftriaxone and azit hromycinThe patient was seen over the camera and discussed with bedside nurse is currently on CPAP 8 FiO2 95% respiratory rate 27-minute ventilation is 24 L.He looks worse than yesterday I think that t hat he likely will need to be intubated in the next 24 to 48 hoursPlease excuse any mistakes in synta x and contextual errors that this report may contain, as it is created by histologist technologist softwareInte rventions Intermediate-Communication with other healthcare providers and/or family, Other: COVID-19 a nd pneumonia ARDS, acute hypoxemic respiratory failure
[2021-04-06] MEDS: cefTRIAXone 1 GM in Premix Bag 1 BAG IV SCH (18:00)
--- NOTE | 2021-04-06 18:22 | PCM.PN ---
- General Info Date of Service: 04/06/21 Subjective Update: Pt is doing some proning and laying on his side. He is still requiring quite a good amount of high flow oxygen. - Patient Data Vitals - Most Recent: Last Vital Signs Temp 99.8 F 04/06/21 16:00 Pulse 81 04/05/21 16:00 Resp 28 H 04/06/21 18:00 BP 98/58 L 04/06/21 18:00 Pulse Ox 94 L 04/06/21 18:00 Weight - Most Recent: 194 lb 12.8 oz I&O - Last 24 Hours: Intake & Output 04/06/21 04/06/21 04/06/21 06:59 14:59 22:59 Intake Total 850 200 Output Total 825 Balance 25 200 Lab Results Last 24 Hours: Laboratory Results - last 24 hr 04/06/21 04/06/21 Range/Units 03:30 03:30 WBC 21.49 H (4.0-11.0) K/uL RBC 4.29 L (4.50-5.90) M/uL Hgb 13.9 (13.0-17.0) g/dL Hct 39.4 (38.0-50.0) % MCV 91.8 (80.0-98.0) fL MCH 32.4 H (27.0-32.0) pg MCHC 35.3 (31.0-37.0) g/dL RDW Std Deviation 43.1 (28.0-62.0) fl RDW Coeff of Yenni 13 (11.0-15.0) % Plt Count 532 H (150-400) K/uL MPV 10.00 (7.40-12.00) fL Nucleated RBC % 0.0 /100WBC Nucleated RBCs # 0 K/uL Sodium 138 (136-148) mmol/L Potassium 4.4 (3.5-5.1) mmol/L Chloride 104 (98-107) mmol/L Carbon Dioxide 23.9 (21.0-32.0) mmol/L BUN 12 (7.0-18.0) mg/dL Creatinine 0.9 (0.8-1.3) mg/dL Est Cr Clr Drug Dosing 122.07 mL/min Estimated GFR (MDRD) > 60.0 ml/min Glucose 122 H (74-106) mg/dL Calcium 8.4 L (8.5-10.1) mg/dL Total Bilirubin 0.8 (0.2-1.0) mg/dL AST 46 H (15-37) IU/L ALT 148 H (14-63) IU/L Alkaline Phosphatase 78 (46-116) U/L Total Protein 6.5 (6.4-8.2) g/dL Albumin 2.1 L (3.4-5.0) g/dL Globulin 4.4 H (2.6-4.0) g/dL Albumin/Globulin Ratio 0.5 L (0.9-1.6) Med Orders - Current: Current Medications Acetaminophen (Acetaminophen 325 Mg Tab) 650 mg PO Q4H PRN PRN Reason: Pain/Fever Last Admin: 04/06/21 14:48 Dose: 650 mg Documented by: Albuterol (Albuterol 0.083% 2.5 Mg/3 Ml Neb Soln) 2.5 mg NEB QIDRT PRN PRN Reason: Dyspnea Last Admin: 04/06/21 11:14 Dose: 2.5 mg Documented by: Albuterol/Ipratropium (Albuterol/Ipratropium 4 Gm Inhalation [place]) 0 gm INH Q4H PRN PRN Reason: Dyspnea Last Admin: 04/06/21 06:50 Dose: 1 puff Documented by: Albuterol/Ipratropium (Albuterol/Ipratropium 3.0-0.5 Mg/3 Ml Neb Soln) 3 ml NEB Q6HRRT [facility] Last Admin: 04/06/21 17:54 Dose: 3 ml Documented by: Baricitinib (Baricitinib 2 Mg Tab) 4 mg PO DAILY [facility] Last Admin: 04/06/21 08:15 Dose: 4 mg Documented by: Dexamethasone (Dexamethasone 4 Mg Tab) 6 mg PO DAILY [facility] Last Admin: 04/06/21 08:15 Dose: 6 mg Documented by: Enoxaparin Sodium (Enoxaparin 40 Mg/0.4 Ml Syringe) 40 mg SUBCUT Q24H [facility] Last Admin: 04/06/21 08:15 Dose: 40 mg Documented by: Guaifenesin/Dextromethorphan (Guaifenesin/Dextromethorphan 100-10 Mg/5 Ml Soln 10 Ml Cup) 10 ml PO Q6H PRN PRN Reason: Cough Last Admin: 04/06/21 06:41 Dose: 10 ml Documented by: Remdesivir 100 mg/ Sodium (Chloride) 100 mls @ 100 mls/hr IV Q24H [facility] Stop: 04/08/21 14:59 Last Admin: 04/06/21 14:17 Dose: 100 mls/hr Documented by: Ceftriaxone Sodium/Dextrose 1 (gm/ Premix) 50 mls @ 100 mls/hr IV Q24H [facility] Last Admin: 04/06/21 18:00 Dose: 100 mls/hr Documented by: Azithromycin 500 mg/ Sodium (Chloride) 250 mls @ 250 mls/hr IV Q24H [facility] Last Admin: 04/05/21 20:19 Dose: 250 mls/hr Documented by: Ibuprofen (Ibuprofen 200 Mg Tab) 200 mg PO Q6H PRN PRN Reason: Pain Last Admin: 04/06/21 16:50 Dose: 200 mg Documented by: Ondansetron HCl (Ondansetron 4 Mg Tab.Dis) 4 mg PO Q4H PRN PRN Reason: Nausea/Vomiting Last Admin: 04/06/21 07:51 Dose: 4 mg Documented by: Promethazine HCl (Promethazine 25 Mg/Ml Sdv) 25 mg IM Q6H PRN PRN Reason: Nausea Sodium Chloride (Sodium Chloride 0.65% Nasal [place] 45 Ml Bottle) 1 ml ROSS Q6H PRN PRN Reason: Congestion Last Admin: 04/04/21 20:19 Dose: 1 spray Documented by: Discontinued Medications Albuterol/Ipratropium (Albuterol/Ipratropium 3.0-0.5 Mg/3 Ml Neb Soln) 3 ml NEB Q4HRRT [facility] Last Admin: 04/06/21 11:17 Dose: Not Given Documented by: Enoxaparin Sodium (Enoxaparin 40 Mg/0.4 Ml Syringe) 40 mg SUBCUT Q24H [facility] Last Admin: 04/04/21 12:00 Dose: Not Given Documented by: Remdesivir 200 mg/ Sodium (Chloride) 250 mls @ 250 mls/hr IV ONETIME ONE Stop: 04/04/21 14:59 Last Admin: 04/04/21 14:37 Dose: 250 mls/hr Documented by: Iopamidol (Iopamidol 755 Mg/Ml 500 Ml Multipack Bottle) 100 ml IVPUSH ONETIME STA Stop: 04/04/21 15:55 Last Admin: 04/04/21 15:55 Dose: 100 ml Documented by: Ondansetron HCl (Ondansetron 4 Mg/2 Ml Sdv) 4 mg IVPUSH Q4H PRN PRN Reason: Nausea Last Admin: 04/05/21 03:18 Dose: 4 mg Documented by: - Exam Physical Findings Comments:: General: Well developed middle aged male. In no distress CVS: S1S2 appreciated. RRR lungs: clear bilaterally pa: soft, non tender. bowel sounds present ext: no clubbing, cyanosis or edema. neuro: no focal deficits. - Patient Data Lab Results Last 24 hrs: Laboratory Results - last 24 hr 04/06/21 04/06/21 Range/Units 03:30 03:30 WBC 21.49 H (4.0-11.0) K/uL RBC 4.29 L (4.50-5.90) M/uL Hgb 13.9 (13.0-17.0) g/dL Hct 39.4 (38.0-50.0) % MCV 91.8 (80.0-98.0) fL MCH 32.4 H (27.0-32.0) pg MCHC 35.3 (31.0-37.0) g/dL RDW Std Deviation 43.1 (28.0-62.0) fl RDW Coeff of Yenni 13 (11.0-15.0) % Plt Count 532 H (150-400) K/uL MPV 10.00 (7.40-12.00) fL Nucleated RBC % 0.0 /100WBC Nucleated RBCs # 0 K/uL Sodium 138 (136-148) mmol/L Potassium 4.4 (3.5-5.1) mmol/L Chloride 104 (98-107) mmol/L Carbon Dioxide 23.9 (21.0-32.0) mmol/L BUN 12 (7.0-18.0) mg/dL Creatinine 0.9 (0.8-1.3) mg/dL Est Cr Clr Drug Dosing 122.07 mL/min Estimated GFR (MDRD) > 60.0 ml/min Glucose 122 H (74-106) mg/dL Calcium 8.4 L (8.5-10.1) mg/dL Total Bilirubin 0.8 (0.2-1.0) mg/dL AST 46 H (15-37) IU/L ALT 148 H (14-63) IU/L Alkaline Phosphatase 78 (46-116) U/L Total Protein 6.5 (6.4-8.2) g/dL Albumin 2.1 L (3.4-5.0) g/dL Globulin 4.4 H (2.6-4.0) g/dL Albumin/Globulin Ratio 0.5 L (0.9-1.6) Result Diagrams: 04/06/21 03:30 04/06/21 03:30 Sepsis Event Note - Evaluation Sepsis Screening Result: Sepsis Risk - Focused Exam Vital Signs: Vital Signs Temp Resp BP Pulse Ox Pulse Ox 04/06/21 18:00 28 H 98/58 L 94 L 04/06/21 17:00 26 H 95/59 L 93 L 04/06/21 16:00 99.8 F 34 H 102/57 L 91 L 04/06/21 15:00 24 H 108/61 94 L 04/06/21 14:00 33 H 103/59 L 97 04/06/21 13:00 30 H 98/53 L 91 L 04/06/21 12:00 26 H 99/55 L 89 L 89 L 04/06/21 11:00 99.2 F 33 H 116/59 L 88 L 04/06/21 10:00 14 89/56 L 91 L 04/06/21 09:00 98.6 F 23 H 101/57 L 89 L 04/06/21 08:00 99.1 F 32 H 93/58 L 90 L 04/06/21 07:00 97.8 F 26 H 102/53 L 91 L - Problem List & Annotations (1) Acute respiratory failure due to COVID-19 SNOMED Code(s): 738240046 Code(s): U07.1 - COVID-19; J96.00 - ACUTE RESPIRATORY FAILURE, UNSP W HYPOXIA OR HYPERCAPNIA Status: Acute Current Visit: Yes (2) COVID-19 SNOMED Code(s): 040577202 Code(s): U07.1 - COVID-19 Status: Acute Current Visit: No (3) Full code status SNOMED Code(s): 935586033 Code(s): Z78.9 - OTHER SPECIFIED HEALTH STATUS Status: Acute Current Visit: Yes - Problem List Review Problem List Initiated/Reviewed/Updated: Yes - My Orders Last 24 Hours: My Active Orders 04/06/21 09:30 RT Aerosol Therapy [RC] ASDIRECTED Albuterol [Proventil Neb Soln] 2.5 mg NEB QIDRT PRN 04/06/21 12:00 Albuterol/Ipratropium [DuoNeb 3.0-0.5 MG/3 ML] 3 ml NEB Q6HRRT 04/07/21 07:00 BLOOD GAS ARTERIAL [BG] Routine - Plan Plan:: 40 y/o male admitted with acute hypoxemic respiratory failure secondary to COVID-19 infection. Continue with heated high flow NC 55 L at 65%. Pt may require CPAP/ Bipap or even intubation and transfer to a higher level of care if his condition does not improve in the next day or so. COVID 19 infection: On Dexamethasone and Remdesivir and anticoagulation. DC Rocephin. Keep azithromycin. Pt had a low procalcitonin is low. Patient has been instructed on the FDA EAU of Baricitinib has consented to the use of Baricitinib VTE prophylaxis: SQ lovenox Full code status Prognosis remains guarded.
[2021-04-06] MEDS: Azithromycin 500 MG in Sodium Chloride 0.9% 250 ML IV SCH (19:27)
[2021-04-06] MEDS: Sodium Chloride 0.65% Nasal Spray 45 ML Bottle NAS PRN (20:30)
[2021-04-07] MEDS ORDERED: Melatonin 3 MG Tab PO PRN (00:30)
[2021-04-07] MEDS: Albuterol/Ipratropium 3.0-0.5 MG/3 ML Neb Soln NEB SCH ×2 (00:36→05:03)
[2021-04-07] MEDS: Ondansetron 4 MG Tab.DIS PO PRN ×2 (00:36→05:45)
[2021-04-07] MEDS: Ibuprofen 200 MG Tab PO PRN (00:36)
[2021-04-07] MEDS: Sodium Chloride 0.65% Nasal Spray 45 ML Bottle NAS PRN (00:54)
[2021-04-07] MEDS: Acetaminophen 325 MG Tab PO PRN ×2 (01:11→05:45)
[2021-04-07] MEDS: guaiFENesin/Dextromethorphan 100-10 MG/5 ML Soln 10 ML Cup PO PRN ×2 (01:17→10:00)
[2021-04-07] MEDS ORDERED: Calcium Carbonate 500 MG Tab.Chew PO ONE (04:21)
--- NOTE | 2021-04-07 04:24 | PN ---
THC Physician - Brief Progress AjqaMPZRJBRPH98/25/2021 04:23[facility] [place], [place] - [place] (HERMES) - [place] COVID+Date of Service 04/07/2021 04:23HP I/Events of Note Called for heartburn. Ordered tums po x1.If symptoms recur or persist, recommend sta rting routine GI prophylaxis.Interventions Minor-Routine modifications to care plan (e.g. PRN medicat ions for pain, fever)
--- NOTE | 2021-04-07 07:57 | PN ---
THC Physician - Brief Progress [id number]/25/2021 07:54[facility] [place] - [place] ([place]MES) - [place] COVID+Date of Service 04/07/2021 07:54HP I/Events of Note Called to review ABG, pH 7.45, PaO2 55. Attempted BIPAP but patient did not tolerate pressures.On camera, farida patient is now self-proned, CPAP 8, FiO2 100%, breathing 23-26, VT 800s, sa t 93%.Plan:Self-prone for as long as possible (ideally 16 hours or more). If worsening again, recomme nd increase CPAP to 10-12 as tolerated.If ineffective, call eICU back.Interventions Major-Respiratory failure - evaluation and management
--- NOTE | 2021-04-07 08:45 | PN ---
THC Physician - Brief Progress NbrsKBGTGNLCT33/25/2021 08:44[facility] [place], [place] - [place] (HERMES) - [place] COVID+Date of Service 04/07/2021 08:44HP I/Events of Note Contacted by bedside physician. Informed that team is decided to proceed with intub ation. The patient is having increasing work of breathing despite being on BiPAP. The patient has b een accepted for transfer to a higher level of care facility. No specific request at this time from the ICU. We will continue to follow closely and assist as needed.Thank you for allowing us to partic ipate in the care of your patient.Interventions Major-Respiratory failure - evaluation and management
[2021-04-07] MEDS ORDERED: Acetaminophen/HYDROcodone 325-5 MG Tab PO PRN (09:05)
[2021-04-07] MEDS ORDERED: LORazepam 2 MG/ML SDV IVPUSH PRN (09:24)
[2021-04-07] MEDS ORDERED: LORazepam 2 MG/ML SDV ONE (09:36)
[2021-04-07] MEDS: Enoxaparin 40 MG/0.4 ML Syringe SUBCUT SCH (09:44)
[2021-04-07] MEDS: Dexamethasone 4 MG Tab PO SCH (09:44)
[2021-04-07] MEDS ORDERED: Albuterol/Ipratropium 3.0-0.5 MG/3 ML Neb Soln NEB SCH (10:00)
--- NOTE | 2021-04-07 10:31 | CR ---
HISTORY: Respiratory failure. TECHNIQUE: One view of the chest. COMPARISON: 04/06/2021. FINDINGS: No change in extensive bilateral lung infiltrates. There is no pneumothorax. No moderate or large pleural effusion. Stable heart size. IMPRESSION: No change in extensive bilateral lung infiltrates. Dictated by Jose Castillo MD @ 04/07/2021 10:29:26 AM (Electronically Signed)
--- NOTE | 2021-04-07 10:44 | PCM.PN ---
- General Info Date of Service: 04/07/21 Subjective Update: The patient is a 40-year-old male, on day 4 of service, with a significant past medical history of asthma, who was admitted to the intensive care unit due to respiratory failure secondary to COVID-19 pneumonia. The patient continues to have increasing oxygen demand and currently is on CPAP 8/100%. The decision to intubate the patient was made earlier today and a transfer bed was ready at [facility] in [place], however the patient and his family have opted out of being intubated at the moment and as a result he will be transitioned over to BiPAP and be given Ativan. We will continue to assess this patient's oxygen demand and treat him accordingly. Upon interview with the patient today he was using his accessory muscles of breathing and was having difficulty while lying in the prone position. It was difficult for him to give a history. His came to visit him today and the medical plan was discussed with her and her questions were answered. - Review of Systems General: Reports: Other (The patient was extremely short of breath and was having difficulty answering questions) - Patient Data Vitals - Most Recent: Last Vital Signs Temp 98.4 F 04/07/21 04:00 Pulse 81 04/05/21 16:00 Resp 28 H 04/07/21 07:00 BP 105/63 04/07/21 07:00 Pulse Ox 89 L 04/07/21 07:00 Weight - Most Recent: 194 lb 12.8 oz I&O - Last 24 Hours: Intake & Output 04/06/21 04/07/21 04/07/21 22:59 06:59 14:59 Intake Total 1050 650 Output Total 500 725 Balance 550 -75 Lab Results Last 24 Hours: Laboratory Results - last 24 hr 04/07/21 Range/Units 06:05 ABG pH 7.45 (7.35-7.45) ABG pCO2 36 (35-45) mmHG ABG pO2 55 L (80-105) mmHG ABG HCO3 25 (22-26) mEq/L ABG Total CO2 22.2 L (23-27) mmol/L ABG Base Excess 1.1 (-2.0-3.0) César Results Last 24 Hours: Microbiology 04/06/21 03:40 Aerobic Blood Culture - Preliminary Blood - Venous - Lab Draw NO GROWTH AFTER 1 DAY Anaerobic Blood Culture - Preliminary NO GROWTH AFTER 1 DAY 04/06/21 03:30 Aerobic Blood Culture - Preliminary Blood - Venous NO GROWTH AFTER 1 DAY Anaerobic Blood Culture - Preliminary NO GROWTH AFTER 1 DAY Med Orders - Current: Current Medications Acetaminophen (Acetaminophen 325 Mg Tab) 650 mg PO Q4H PRN PRN Reason: Pain/Fever Last Admin: 04/07/21 05:45 Dose: 650 mg Documented by: Hydrocodone Bitart/Acetaminophen (Acetaminophen/Hydrocodone 325-5 Mg Tab) 1 tab PO Q4H PRN PRN Reason: Pain Last Admin: 04/07/21 09:43 Dose: 1 tab Documented by: Albuterol (Albuterol 0.083% 2.5 Mg/3 Ml Neb Soln) 2.5 mg NEB QIDRT PRN PRN Reason: Dyspnea Last Admin: 04/06/21 11:14 Dose: 2.5 mg Documented by: Albuterol/Ipratropium (Albuterol/Ipratropium 4 Gm Inhalation [place]) 0 gm INH Q4H PRN PRN Reason: Dyspnea Last Admin: 04/06/21 20:49 Dose: 1 puff Documented by: Albuterol/Ipratropium (Albuterol/Ipratropium 3.0-0.5 Mg/3 Ml Neb Soln) 3 ml NEB Q4HRRT [facility] Last Admin: 04/07/21 10:24 Dose: 3 ml Documented by: Baricitinib (Baricitinib 2 Mg Tab) 4 mg PO DAILY [facility] Last Admin: 04/07/21 09:44 Dose: 4 mg Documented by: Dexamethasone (Dexamethasone 4 Mg Tab) 6 mg PO DAILY [facility] Last Admin: 04/07/21 09:44 Dose: Not Given Documented by: Enoxaparin Sodium (Enoxaparin 40 Mg/0.4 Ml Syringe) 40 mg SUBCUT Q24H [facility] Last Admin: 04/07/21 09:44 Dose: 40 mg Documented by: Guaifenesin/Dextromethorphan (Guaifenesin/Dextromethorphan 100-10 Mg/5 Ml Soln 10 Ml Cup) 10 ml PO Q6H PRN PRN Reason: Cough Last Admin: 04/07/21 10:00 Dose: 10 ml Documented by: Remdesivir 100 mg/ Sodium (Chloride) 100 mls @ 100 mls/hr IV Q24H [facility] Stop: 04/08/21 14:59 Last Admin: 04/06/21 14:17 Dose: 100 mls/hr Documented by: Azithromycin 500 mg/ Sodium (Chloride) 250 mls @ 250 mls/hr IV Q24H [facility] Last Admin: 04/06/21 19:27 Dose: 250 mls/hr Documented by: Ibuprofen (Ibuprofen 200 Mg Tab) 200 mg PO Q6H PRN PRN Reason: Pain Last Admin: 04/07/21 00:36 Dose: 200 mg Documented by: Lorazepam (Lorazepam 2 Mg/Ml Sdv) 2 mg IVPUSH Q4H PRN PRN Reason: Agitation Last Admin: 04/07/21 10:00 Dose: 2 mg Documented by: Melatonin (Melatonin 3 Mg Tab) 6 mg PO BEDTIME PRN PRN Reason: Insomnia Last Admin: 04/07/21 00:40 Dose: 6 mg Documented by: Ondansetron HCl (Ondansetron 4 Mg Tab.Dis) 4 mg PO Q4H PRN PRN Reason: Nausea/Vomiting Last Admin: 04/07/21 05:45 Dose: 4 mg Documented by: Promethazine HCl (Promethazine 25 Mg/Ml Sdv) 25 mg IM Q6H PRN PRN Reason: Nausea Last Admin: 04/07/21 03:42 Dose: 25 mg Documented by: Sodium Chloride (Sodium Chloride 0.65% Nasal [place] 45 Ml Bottle) 1 ml ROSS Q6H PRN PRN Reason: Congestion Last Admin: 04/07/21 00:54 Dose: 1 spray Documented by: Discontinued Medications Albuterol/Ipratropium (Albuterol/Ipratropium 3.0-0.5 Mg/3 Ml Neb Soln) 3 ml NEB Q4HRRT [facility] Last Admin: 04/06/21 11:17 Dose: Not Given Documented by: Albuterol/Ipratropium (Albuterol/Ipratropium 3.0-0.5 Mg/3 Ml Neb Soln) 3 ml NEB Q6HRRT [facility] Last Admin: 04/07/21 05:03 Dose: 3 ml Documented by: Calcium Carbonate/Glycine (Calcium Carbonate 500 Mg Tab.Chew) 1,000 mg PO ONETIME ONE Stop: 04/07/21 04:22 Last Admin: 04/07/21 04:35 Dose: 1,000 mg Documented by: Enoxaparin Sodium (Enoxaparin 40 Mg/0.4 Ml Syringe) 40 mg SUBCUT Q24H [facility] Last Admin: 04/04/21 12:00 Dose: Not Given Documented by: Remdesivir 200 mg/ Sodium (Chloride) 250 mls @ 250 mls/hr IV ONETIME ONE Stop: 04/04/21 14:59 Last Admin: 04/04/21 14:37 Dose: 250 mls/hr Documented by: Ceftriaxone Sodium/Dextrose 1 (gm/ Premix) 50 mls @ 100 mls/hr IV Q24H [facility] Last Admin: 04/06/21 18:00 Dose: 100 mls/hr Documented by: Iopamidol (Iopamidol 755 Mg/Ml 500 Ml Multipack Bottle) 100 ml IVPUSH ONETIME STA Stop: 04/04/21 15:55 Last Admin: 04/04/21 15:55 Dose: 100 ml Documented by: Lorazepam (Lorazepam 2 Mg/Ml Sdv) Confirm Administered Dose 2 mg .ROUTE .STK-MED ONE Stop: 04/07/21 09:37 Last Admin: 04/07/21 09:45 Dose: 2 mg Documented by: Ondansetron HCl (Ondansetron 4 Mg/2 Ml Sdv) 4 mg IVPUSH Q4H PRN PRN Reason: Nausea Last Admin: 04/05/21 03:18 Dose: 4 mg Documented by: - Exam General: Alert, Moderate Distress HEENT: Other (Dry mucous membranes) Neck: Trachea Midline Lungs: Wheezing, Other (Use of accessory muscles during breathing) Cardiovascular: Regular Rate, Regular Rhythm GI/Abdominal Exam: Normal Bowel Sounds - Patient Data Lab Results Last 24 hrs: Laboratory Results - last 24 hr 04/07/21 Range/Units 06:05 ABG pH 7.45 (7.35-7.45) ABG pCO2 36 (35-45) mmHG ABG pO2 55 L (80-105) mmHG ABG HCO3 25 (22-26) mEq/L ABG Total CO2 22.2 L (23-27) mmol/L ABG Base Excess 1.1 (-2.0-3.0) Result Diagrams: 04/06/21 03:30 04/06/21 03:30 César Results Last 24 hrs: Microbiology 11/24/21 03:40 Aerobic Blood Culture - Preliminary Blood - Venous - Lab Draw NO GROWTH AFTER 1 DAY Anaerobic Blood Culture - Preliminary NO GROWTH AFTER 1 DAY 04/06/21 03:30 Aerobic Blood Culture - Preliminary Blood - Venous NO GROWTH AFTER 1 DAY Anaerobic Blood Culture - Preliminary NO GROWTH AFTER 1 DAY Sepsis Event Note - Evaluation Sepsis Screening Result: Severe Sepsis Risk - Focused Exam Vital Signs: Vital Signs Temp Resp BP Pulse Ox 04/07/21 07:00 28 H 105/63 89 L 04/07/21 06:00 25 H 109/68 89 L 04/07/21 05:00 33 H 115/64 87 L 04/07/21 04:00 98.4 F 22 H 106/62 87 L 04/07/21 03:00 24 H 101/68 89 L 04/07/21 02:00 22 H 99/61 89 L 04/07/21 01:00 24 H 107/56 L 95 04/07/21 00:00 97.6 F 26 H 110/59 L 93 L 04/06/21 23:00 29 H 101/51 L 93 L - Problem List & Annotations (1) Acute respiratory failure due to COVID-19 SNOMED Code(s): 247583050 Code(s): U07.1 - COVID-19; J96.00 - ACUTE RESPIRATORY FAILURE, UNSP W HYPOXIA OR HYPERCAPNIA Status: Acute Current Visit: Yes (2) Bacterial pneumonia SNOMED Code(s): 90010661 Code(s): J15.9 - UNSPECIFIED BACTERIAL PNEUMONIA Status: Acute Current Visit: Yes - Problem List Review Problem List Initiated/Reviewed/Updated: Yes - Assessment Assessment:: 1. Respiratory failure secondary to COVID-19 pneumonia -The patient is currently on BiPAP, transitioned up from CPAP, we will continue to monitor his oxygen status and treat him accordingly -Continue COVID-19 protocol medications including remdesivir, baricitinib, dex amethasone -For symptomatic treatment continue Zofran, duo nebs, Combivent, Robitussin -The prospect for intubation was supposed to happen today but has been delayed due to family preference 2. Bacterial pneumonia -Continue azithromycin 500 mg
[2021-04-07] MEDS ORDERED: LORazepam 2 MG/ML SDV IVPUSH ONE (11:04)
[2021-04-07] MEDS ORDERED: HEPARIN SODIUM ONE (11:24)
[2021-04-07] MEDS ORDERED: NACL ONE (11:24)
--- NOTE | 2021-04-07 11:34 | PN ---
THC Physician - Brief Progress EdfsLESCQJCSX76/25/2021 11:31[facility] [place] - [place]YOTIN (HERMES) - N[place]HOLE ICUPING DIAZ, COVID+Date of Service 04/07/2021 11:31HP I/Events of Note eICU Progress [id number] male being managed for severe COVID-19 pneumonia. Thi s morning patient is on BiPAP at 12/5, 95% FiO2. Saturating 89%.Camera, the patient is laying in bed appears to be comfortable, no overt breathing, no distress.ReviewedVitalsEMR notesLabsAvailable imag ingMedicationseICU impressionsAcute hypoxemic respiratory failureCOVID-19 pneumoniaQI measureseICU Re commendations:Continue supplemental oxygen via heated high flow nasal cannula and/or noninvasive vent ilation as needed to maintain saturation of 90 to 94%Self proning as tolerated or neededMaintain euvo lemia to net negative volume statusComplete course of systemic steroids, remdesivir and baricitinibTh erapeutic dose Lovenox for acute pulmonary embolus at 1 mg/mg twice dailyGI prophylaxis, will add Pep yudelka twice dailyGlycemic control per protocol, blood pressure target 140-180Thank you for allowing us to participate in the care of your patient.Interventions Major-Hypoxemia - evaluation and management, Infection - evaluation and management, Respiratory failure - evaluation and management
[2021-04-07] MEDS ORDERED: Rocuronium Bromide 50 MG/5 ML Syringe ONE ×2 (11:36)
[2021-04-07] MEDS ORDERED: Propofol 200 MG/20 ML SDV ONE (11:36)
--- NOTE | 2021-04-07 11:36 | PCM.DCSUM1 ---
Discharge Summary - Hospital Course Free Text/Narrative:: The patient is a 40-year-old male, on day 4 of service, with a significant past medical history of asthma, who was admitted to the intensive care unit due to respiratory failure secondary to COVID-19 pneumonia. The patient continues to have increasing oxygen demand and currently is on CPAP 8/100%. A final decision to intubate the patient and send him over to [facility] to be seen by an commercial decorator has been reached. The decision was made by the family with input from medical staff here in [place]. The patient will be intubated here in [place] by the anesthesiology team, and then will be transferred to [place] where the ICU will assume responsibility for his care. While in hospital here, the patient was treated with different protocol medications for COVID-19 pneumonia including remdesivir per IV route, baricitinib per oral ro onur, dexamethasone per oral route, and with symptomatic approaches with Combivent, duo nebulizers, and Robitussin. The patient was also given azithromycin for potential coverage of bacterial pneumonia. The patient continues to require increased oxygen demand and throughout his hospitalization was on CPAP with the potential for BiPAP. Nonetheless he had worsening oxygen requirements seen through his use of accessory muscles of breathing. Later today, the patient will be transferred to [place] via helicopter/plane in hopes for recovery. - Discharge Data Discharge Date: 04/07/21 Discharge Disposition: DC/Tfer to Acute Hospital 02 Condition: Good - Referral to Home Health Primary Care Physician: Jesús Nina MD - Discharge Diagnosis/Problem(s) (1) Acute respiratory failure due to COVID-19 SNOMED Code(s): 636862626 ICD Code: U07.1 - COVID-19; J96.00 - ACUTE RESPIRATORY FAILURE, UNSP W HYPOXIA OR HYPERCAPNIA Status: Acute Current Visit: Yes (2) Bacterial pneumonia SNOMED Code(s): 02973903 ICD Code: J15.9 - UNSPECIFIED BACTERIAL PNEUMONIA Status: Acute Current Visit: Yes - Patient Instructions Diet: Regular Diet as Tolerated Activity: As Tolerated Other/Special Instructions: -Transfer to [facility] after intubation procedure for further care and management by hospital commercial decorator - Discharge Plan Home Medications: Home Meds Ondansetron [Zofran ODT] 4 mg PO Q6H PRN #20 tab.dis 03/24/21 [Rx] Acetaminophen [Tylenol] 600 mg PO ASDIRECTED 03/28/21 [History] Ibuprofen 400 mg PO ASDIRECTED 03/28/21 [History] guaiFENesin [Mucus Relief ER] 1,200 mg PO BID 03/28/21 [History] dexAMETHasone [Decadron] 6 mg PO DAILY #5 tablet 03/29/21 [Rx] Patient Handouts: COVID-19 Frequently Asked Questions, COVID-19 Vaccine Information, Hypoxemia, How to Protect Yourself and Others - [facility] (12/24/2020) Referrals: Jesús Nina MD [Primary Care Provider] - - Discharge Summary/Plan Comment DC Time >30 min.: Yes Total # of Minutes for Discharge Time: 35 minutes - Review of Systems General: Reports: Other (Due to the patient's respiratory difficulty it was extremely difficult for him to answer questions) - Patient Data Vitals - Most Recent: Last Vital Signs Temp 98.4 F 04/07/21 04:00 Pulse 81 04/05/21 16:00 Resp 28 H 04/07/21 07:00 BP 105/63 04/07/21 07:00 Pulse Ox 89 L 04/07/21 07:00 Weight - Most Recent: 194 lb 12.8 oz I&O - Last 24 hours: Intake & Output 04/06/21 04/07/21 04/07/21 22:59 06:59 14:59 Intake Total 1050 650 Output Total 500 725 Balance 550 -75 Lab Results - Last 24 hrs: Laboratory Results - last 24 hr 04/07/21 Range/Units 06:05 ABG pH 7.45 (7.35-7.45) ABG pCO2 36 (35-45) mmHG ABG pO2 55 L (80-105) mmHG ABG HCO3 25 (22-26) mEq/L ABG Total CO2 22.2 L (23-27) mmol/L ABG Base Excess 1.1 (-2.0-3.0) JUDSON Results - Last 24 hrs: Microbiology 04/06/21 03:40 Aerobic Blood Culture - Preliminary Blood - Venous - Lab Draw NO GROWTH AFTER 1 DAY Anaerobic Blood Culture - Preliminary NO GROWTH AFTER 1 DAY 04/06/21 03:30 Aerobic Blood Culture - Preliminary Blood - Venous NO GROWTH AFTER 1 DAY Anaerobic Blood Culture - Preliminary NO GROWTH AFTER 1 DAY Med Orders - Current: Current Medications Acetaminophen (Acetaminophen 325 Mg Tab) 650 mg PO Q4H PRN PRN Reason: Pain/Fever Last Admin: 04/07/21 05:45 Dose: 650 mg Documented by: Hydrocodone Bitart/Acetaminophen (Acetaminophen/Hydrocodone 325-5 Mg Tab) 1 tab PO Q4H PRN PRN Reason: Pain Last Admin: 04/07/21 09:43 Dose: 1 tab Documented by: Albuterol (Albuterol 0.083% 2.5 Mg/3 Ml Neb Soln) 2.5 mg NEB QIDRT PRN PRN Reason: Dyspnea Last Admin: 04/06/21 11:14 Dose: 2.5 mg Documented by: Albuterol/Ipratropium (Albuterol/Ipratropium 4 Gm Inhalation [place]) 0 gm INH Q4H PRN PRN Reason: Dyspnea Last Admin: 04/06/21 20:49 Dose: 1 puff Documented by: Albuterol/Ipratropium (Albuterol/Ipratropium 3.0-0.5 Mg/3 Ml Neb Soln) 3 ml NEB Q4HRRT [facility] Last Admin: 04/07/21 10:24 Dose: 3 ml Documented by: Baricitinib (Baricitinib 2 Mg Tab) 4 mg PO DAILY [facility] Last Admin: 04/07/21 09:44 Dose: 4 mg Documented by: Dexamethasone (Dexamethasone 4 Mg Tab) 6 mg PO DAILY [facility] Last Admin: 04/07/21 09:44 Dose: Not Given Documented by: Enoxaparin Sodium (Enoxaparin 40 Mg/0.4 Ml Syringe) 40 mg SUBCUT Q24H [facility] Last Admin: 04/07/21 09:44 Dose: 40 mg Documented by: Guaifenesin/Dextromethorphan (Guaifenesin/Dextromethorphan 100-10 Mg/5 Ml Soln 10 Ml Cup) 10 ml PO Q6H PRN PRN Reason: Cough Last Admin: 04/07/21 10:00 Dose: 10 ml Documented by: Remdesivir 100 mg/ Sodium (Chloride) 100 mls @ 100 mls/hr IV Q24H [facility] Stop: 04/08/21 14:59 Last Admin: 04/06/21 14:17 Dose: 100 mls/hr Documented by: Azithromycin 500 mg/ Sodium (Chloride) 250 mls @ 250 mls/hr IV Q24H [facility] Last Admin: 04/06/21 19:27 Dose: 250 mls/hr Documented by: Ibuprofen (Ibuprofen 200 Mg Tab) 200 mg PO Q6H PRN PRN Reason: Pain Last Admin: 04/07/21 00:36 Dose: 200 mg Documented by: Lorazepam (Lorazepam 2 Mg/Ml Sdv) 2 mg IVPUSH Q4H PRN PRN Reason: Agitation Last Admin: 04/07/21 10:00 Dose: 2 mg Documented by: Melatonin (Melatonin 3 Mg Tab) 6 mg PO BEDTIME PRN PRN Reason: Insomnia Last Admin: 04/07/21 00:40 Dose: 6 mg Documented by: Ondansetron HCl (Ondansetron 4 Mg Tab.Dis) 4 mg PO Q4H PRN PRN Reason: Nausea/Vomiting Last Admin: 04/07/21 05:45 Dose: 4 mg Documented by: Promethazine HCl (Promethazine 25 Mg/Ml Sdv) 25 mg IM Q6H PRN PRN Reason: Nausea Last Admin: 04/07/21 03:42 Dose: 25 mg Documented by: Sodium Chloride (Sodium Chloride 0.65% Nasal [place] 45 Ml Bottle) 1 ml ROSS Q6H PRN PRN Reason: Congestion Last Admin: 04/07/21 00:54 Dose: 1 spray Documented by: Discontinued Medications Albuterol/Ipratropium (Albuterol/Ipratropium 3.0-0.5 Mg/3 Ml Neb Soln) 3 ml NEB Q4HRRT [facility] Last Admin: 04/06/21 11:17 Dose: Not Given Documented by: Albuterol/Ipratropium (Albuterol/Ipratropium 3.0-0.5 Mg/3 Ml Neb Soln) 3 ml NEB Q6HRRT [facility] Last Admin: 04/07/21 05:03 Dose: 3 ml Documented by: Calcium Carbonate/Glycine (Calcium Carbonate 500 Mg Tab.Chew) 1,000 mg PO ONETIME ONE Stop: 04/07/21 04:22 Last Admin: 04/07/21 04:35 Dose: 1,000 mg Documented by: Enoxaparin Sodium (Enoxaparin 40 Mg/0.4 Ml Syringe) 40 mg SUBCUT Q24H [facility] Last Admin: 04/04/21 12:00 Dose: Not Given Documented by: Remdesivir 200 mg/ Sodium (Chloride) 250 mls @ 250 mls/hr IV ONETIME ONE Stop: 04/04/21 14:59 Last Admin: 04/04/21 14:37 Dose: 250 mls/hr Documented by: Ceftriaxone Sodium/Dextrose 1 (gm/ Premix) 50 mls @ 100 mls/hr IV Q24H [facility] Last Admin: 04/06/21 18:00 Dose: 100 mls/hr Documented by: Heparin Sodium/Sodium Chloride (Heparin 25,000 Units In 1/2 Ns 500 Ml) Confirm Administered Dose 500 mls @ as directed .ROUTE .STK-MED ONE Stop: 04/07/21 11:25 Iopamidol (Iopamidol 755 Mg/Ml 500 Ml Multipack Bottle) 100 ml IVPUSH ONETIME STA Stop: 04/04/21 15:55 Last Admin: 04/04/21 15:55 Dose: 100 ml Documented by: Lorazepam (Lorazepam 2 Mg/Ml Sdv) Confirm Administered Dose 2 mg .ROUTE .STK-MED ONE Stop: 04/07/21 09:37 Last Admin: 04/07/21 09:45 Dose: 2 mg Documented by: Lorazepam (Lorazepam 2 Mg/Ml Sdv) 1 mg IVPUSH ONETIME ONE Stop: 04/07/21 11:05 Ondansetron HCl (Ondansetron 4 Mg/2 Ml Sdv) 4 mg IVPUSH Q4H PRN PRN Reason: Nausea Last Admin: 04/05/21 03:18 Dose: 4 mg Documented by: - Exam General: Reports: Alert, Moderate Distress, Lethargic HEENT: Reports: Other (Dry mucous membranes) Neck: Reports: Trachea Midline Lungs: Reports: Wheezing, Other (Use of accessory muscles of breathing) Cardiovascular: Reports: Regular Rate, Regular Rhythm GI/Abdominal Exam: Normal Bowel Sounds, Soft, Non-Tender
[2021-04-07] MEDS ORDERED: Phenylephrine 10 MG in Sodium Chloride 0.9% 99 ML IV SCH (11:44)
[2021-04-07] MEDS ORDERED: propofoL 100 ML ONE ×2 (11:45→13:01)
[2021-04-07] MEDS ORDERED: propofoL 100 ML IV SCH (11:45)
[2021-04-07] MEDS ORDERED: Famotidine 20 MG/2 ML SDV IVPUSH SCH (12:00)
--- NOTE | 2021-04-07 12:06 | PCM.PR.ETI ---
Endotracheal Intubation - Endotracheal Intubation ET Intubation Indication: Respiratory Failure Preparation: Suction, Balloon Tested, BVM Set Up, Difficult Airway Equip Pre-Oxygenation: 100% FiO2 Anesthesia Meds: Propofol, Rocuronium Placement: Orotracheal Cords Visualized: Yes, Grade 1 ETT Size In mm: 8.0 Number of Attempts: 1 Confirmed By: CO2 Indicator, Bilateral Breath Sounds, Chest Xray Tube Secured By: By Provider
--- NOTE | 2021-04-07 12:07 | PCM.PR.CLI ---
Central Line Insertion - Central Line Insertion Site: subclavian (L) Prep: CDC/MBT Guidelines Lumen: triple Gauge: 7Fr Ultrasound guided: No Micropuncture kit used: No CL Complications: No Secured with suture: Yes Post placement confirmation: CXR, all ports aspirated, all ports flushed CXR post-procedure: no pneumothorax Dressing applied: by provider, chlorhexidine disc used, op-site dressing
--- NOTE | 2021-04-07 12:08 | PCM.PR.ALI ---
Arterial Line Insertion - Arterial Line Insertion Arterial Line Indication: hemodynamic monitoring Site: radial (L) Allens test: negative Prep: CDC/MBT Guidelines, Sterile Drapes, Chlorhexidine Gauge: 20Fr Local Anesthesia - Lidocaine (Xylocaine): lidocaine 1 % Local Anesthetic Volume: 1cc Ultrasound guided: No Secured with suture: Yes Dressing applied: by provider Complications: none
--- NOTE | 2021-04-07 13:50 | PN ---
THC Physician - Brief Progress PighKIONDBDER72/25/2021 13:48[facility] majoCatracho, [place] - [place]HO[place] (HERMES) - JYOTIN ICUPING DIAZ, COVID+Date of Service 04/07/2021 13:48HP I/Events of Note COVID 19. Failed bipap. Intuibated in preperation for life flight for higher level o f care. Sedation orders placed per RN request, propofol, precedex. Zachary ordered PRN.Interventions Karol r-Respiratory failure - evaluation and managementElectronically Signed by: JUAN R BELLAMY) on 04/07 13:50
--- NOTE | 2021-04-07 13:59 | CR ---
HISTORY: Post intubation. TECHNIQUE: One view of the chest. COMPARISON: 04/07/2021. FINDINGS: The endotracheal tube terminates approximately 4.5 cm above the tresa. There is a nasogastric to which the extends towards the right within the lower chest following the course of the right mainstem bronchus and right lower lobe bronchus. This suggests inadvertent airway position of the nasogastric tube. Tube repositioning is recommended. There is a left subclavian catheter with catheter terminating within the SVC. No significant change in bilateral lung infiltrates. There is no pneumothorax. No moderate or large pleural effusion. The cardiac size is stable. IMPRESSION: 1. Nasogastric tube appears to terminate within the right lower lobe. Tube repositioning is recommended. 2. Endotracheal tube terminates 4.5 cm above the tresa. 3. Left subclavian catheter tip terminates within the SVC. 4. No change in bilateral lung infiltrates. Dictated by Jose Castillo MD @ 04/07/2021 1:56:50 PM (Electronically Signed)
--- NOTE | 2021-04-07 13:59 | CR ---
HISTORY: Orogastric tube placement. TECHNIQUE: One view of the chest. COMPARISON: 04/07/2021. FINDINGS: The orogastric tube has been repositioned and now terminates within proximal stomach. Left subclavian catheter terminates within the SVC. No change in bilateral lung infiltrates. IMPRESSION: Orogastric tube has been repositioned and now terminates within the proximal stomach. Dictated by Jose Castillo MD @ 04/07/2021 1:58:21 PM (Electronically Signed)
== END 2021-04-07 13:15 | DRG 137 ==
LOC: MW.MS 08:53 → MW.ICU 04-05 17:17
PROVIDERS: ADMIT Internal Medicine; ATTEND Internal Medicine
PROC: XW033E5 Introduction of Remdesivir Anti-infective into Peripheral Vein, Percutaneous Approach, New Technology Group 5 (ICD-10-PCS; principal; 2021-04-04)
PROC: XW0DXM6 Introduction of Baricitinib into Mouth and Pharynx, External Approach, New Technology Group 6 (ICD-10-PCS; 2021-04-04)
PROC: 3E0DX3Z Introduction of Anti-inflammatory into Mouth and Pharynx, External Approach (ICD-10-PCS; 2021-04-04)
PROC: 5A09457 Assistance with Respiratory Ventilation, 24-96 Consecutive Hours, Continuous Positive Airway Pressure (ICD-10-PCS; 2021-04-04)
PROC: 5A0945A Assistance with Respiratory Ventilation, 24-96 Consecutive Hours, High Flow/Velocity Cannula (ICD-10-PCS; 2021-04-04)
PROC: 0BH17EZ Insertion of Endotracheal Airway into Trachea, Via Natural or Artificial Opening (ICD-10-PCS; 2021-04-07)
PROC: 5A1935Z Respiratory Ventilation, Less than 24 Consecutive Hours (ICD-10-PCS; 2021-04-07)
PROC: 02HV33Z Insertion of Infusion Device into Superior Vena Cava, Percutaneous Approach (ICD-10-PCS; 2021-04-07)
PROC: 03HY32Z Insertion of Monitoring Device into Upper Artery, Percutaneous Approach (ICD-10-PCS; 2021-04-07)
PROC: 4A133B1 Monitoring of Arterial Pressure, Peripheral, Percutaneous Approach (ICD-10-PCS; 2021-04-07)
PROC: 4A133J1 Monitoring of Arterial Pulse, Peripheral, Percutaneous Approach (ICD-10-PCS; 2021-04-07)
DX: U07.1 COVID-19 (principal); J12.82 Pneumonia due to coronavirus disease 2019; J45.909 Unspecified asthma, uncomplicated; J96.01 Acute respiratory failure with hypoxia; J15.9 Unspecified bacterial pneumonia; Z79.899 Other long term (current) drug therapy; Z88.0 Allergy status to penicillin; Z90.89 Acquired absence of other organs
CPT/HCPCS: 36415; 36600; 71045; 71045-26; 71275; 71275-26; 80053; 82803; 84145; 85025; 85027; 85610; 86140; 87040; 94002; 94660; A9270-GY; J0456; J0696; J1650; J2060; J2370; J2405; J2550; J2704; J7050; J7620-GY; J8540; Q9967

== ENCOUNTER 2023-01-31 10:09 | Emergency (ER) | payer OTHER, BC | END 2023-01-31 11:26 | disposition home or self-care (01) | LOC: MW.ED 10:09 | DX: S49.91XA Unspecified injury of right shoulder and upper arm, initial encounter (principal); J45.909 Unspecified asthma, uncomplicated; Z88.0 Allergy status to penicillin; X50.0XXA Overexertion from strenuous movement or load, initial encounter | CPT/HCPCS: 73030-26-RT; 73030-RT; 99283 ==